=== PATIENT | male | born 1945 | race Caucasian/White ===

== ENCOUNTER 2016-11-16 12:57 | Emergency (ER) | payer MEDICARE, OTHER ==
[~2016-11-16] VITALS: Ht 165.1 cm; Wt 63.6 kg
[~2016-11-16 12:57] MED LIST: ALBUTEROL S2.5 MG/.5 IN; ALPRAZOLAM1 MG PO; AMOXICILLIN875 MG OR; AMOXIL400 MG/52 PO; ANTIVERT PO; AUGMENTIN400 MG/51 PO; BACTRIM DS1 TAB PO; BL ADULT ASA81 MG PO; CIPROFLOXACN500 MG PO; CITALOPRAM20 MG PO; CLARITHROMYC500 M1 PO; CORTISPORIN OTI10 M2 AS; DILANTIN100 MG PO; DILAUDID4 MG PO; ENALAPRIL MALEAT5 MG PO; ENALAPRIL2.5 MG PO; GABAPENTIN600 MG PO; HYDROCORTISO2.51 EX; HYDROMORPHON4 MG PO; INDERAL10 MG PO; IPRATROPIU0.5 MG/3 M IN; K-DUR/KLOR-CON20 MEQ PO; KEFLEX500 MG PO; KRISTALOSE10 GM PO; LASIX 20 MG TAB20 MG PO; LATANOPROST0.005 % OP; LIDOCAINE5 % EX; LORTAB 5/3255 MG PO; MECLIZINE25 MG PO; MEDDOSEPAK PO; METOPROL TAR25 MG PO; METOPROL TAR50 MG PO; METOPROLOL SUCC25 MG PO; MORPHINE SUL60 MG PO; NICODERM C21 MG/241 TD; NITROLINGUAL SPRAY D MT; ONDANSETRON4 MG PO; PHENOBARB30 MG PO; PLAVIX75 MG PO; PREVPAC PO; PRILOSEC20 MG/CAP PO; PROAIR HFA IN; PROSCAR5 MG PO; ULTRAM50 M1 PO; ULTRAM50 MG PO; UNABLE TO RECONCILE; UNK BP MED; VALTREX1 GM PO; VENTOLIN HFA IN; XANAX0.5 MG PO; ZITHROMAX250 MG PO; ZOCOR10 MG PO; ZOCOR20 M1 PO; ZOFRAN ODT4 MG PO; ZOFRAN ODT4 MG SL; [UNRECOGNIZED DRUG - OTHER] TD; [UNRECOGNIZED DRUG - REMARK]
[2016-11-16] MEDS ORDERED: TRAMADOL HYDROC50 MG PO (14:56)
[2016-11-16] MEDS ORDERED: EC-NAPROSYN500 MG PO (14:56)
[2016-11-16 14:59] VITALS: BP 113/77
== END 2016-11-16 15:00 | disposition home or self-care (01) ==
LOC: ED 12:57
DX: S20.211A Contusion of right front wall of thorax, initial encounter (principal); S70.01XA Contusion of right hip, initial encounter; W01.0XXA Fall on same level from slipping, tripping and stumbling without subsequent striking against object, initial encounter; Y92.009 Unspecified place in unspecified non-institutional (private) residence as the place of occurrence of the external cause

== ENCOUNTER 2016-11-21 22:39 | Observation (INO) | payer MEDICARE, OTHER ==
[~2016-11-21] VITALS: Ht 165.1 cm; Wt 66.4 kg
[~2016-11-21 22:39] MED LIST changes: +EC-NAPROSYN500 MG PO; +TRAMADOL HYDROC50 MG PO
[2016-11-22 00:12] LABS: HEMATOCRIT 40.3 % (39.0-50.0); HEMOGLOBIN 14.1 g/dl (14.0-18.0); IMMATURE GRANULOCYTES 0.3 % (0.0-1.0); MEAN CELL VOLUME 93.7 fL CALC (80.0-100.0); MEAN CORPUSCULAR HGB 32.8 pG CALC (26.0-32.0); NEUT# 5.24 thou/uL (1.82-7.42); RED BLOOD COUNT 4.3 mill/uL (4.70-6.10); RED CELL DISTRI WIDTH 14.1 % (11.5-15.5)
[2016-11-22 01:08] LABS: MYOGLOBIN 33 ng/mL (0 - 121)
[2016-11-22 01:10] LABS: ALBUMIN 4.3 g/dL (3.2-5.0); ALKALINE PHOSPHATASE 163 u/l (38-126); ANION GAP 13 (6-22 (CALC)); BILIRUBIN, TOTAL 0.5 mg/dL (0.0-1.4); BUN 6 mg/dL (8-23); BUN/CREATININE RATIO 10 (12-20 (CALC)); CALCIUM 9.2 mg/dL (8.4-10.2); CARBON DIOXIDE 26 mmol/l (22-30); CHLORIDE 92 mmol/l (95-108); CREATININE 0.6 mg/dL (0.7-1.3); GFR > 60 ML/MIN (>=60 (CALC)); GFR FOR AFR.AMER. > 60 ML/MIN (>=60 (CALC)); GLUCOSE 98 mg/dL (82-115); POTASSIUM 4.6 mmol/l (3.5-5.1); SGOT/AST 16 u/l (19-48); SGPT/ALT 22 u/l (11-66); SODIUM 127 mmol/l (137-146); TOTAL PROTEIN 7.8 g/dL (6.3-8.2)
[2016-11-22] MEDS ORDERED: MEDDOSEPAK PO ×2 (01:35→13:26)
[2016-11-22] MEDS ORDERED: CEPHALEXIN500 MG PO (01:35)
[2016-11-22] MEDS ORDERED: ROBITUSSIN AC10 ML PO ×2 (01:35→13:27)
[2016-11-22 03:51] VITALS: BP 136/65
[2016-11-22 06:20] LABS: ANION GAP 17 (6-22 (CALC)); BUN 7 mg/dL (8-23); BUN/CREATININE RATIO 12 (12-20 (CALC)); CALCIUM 9.2 mg/dL (8.4-10.2); CARBON DIOXIDE 24 mmol/l (22-30); CHLORIDE 94 mmol/l (95-108); CREATININE 0.6 mg/dL (0.7-1.3); GFR > 60 ML/MIN (>=60 (CALC)); GFR FOR AFR.AMER. > 60 ML/MIN (>=60 (CALC)); GLUCOSE 175 mg/dL (82-115); MAGNESIUM 1.9 mg/dL (1.6-2.3); POTASSIUM 4.5 mmol/l (3.5-5.1); SODIUM 130 mmol/l (137-146)
[2016-11-22 08:10] VITALS: BP 153/45
[2016-11-22 12:15] VITALS: BP 127/69
[2016-11-22 12:22] VITALS: BP 141/92
[2016-11-22] MEDS ORDERED: Levaquin PO (13:26)
[2016-11-22] MEDS ORDERED: WELLBUTRIN SR150 MG PO (13:27)
[2016-11-22] MEDS ORDERED: BREO ELLIPTA 101 INH INHW/SPAC (13:28)
[2016-11-22] MEDS ORDERED: SPIRIVA RE2.5 MCG/AC INHW/SPAC (13:28)
== END 2016-11-22 14:45 | disposition home or self-care (01) ==
LOC: ENPENDDIS → ED 22:39 → ED-I 11-22 02:16 → ED 11-22 02:42 → MS2 11-22 02:43
PROVIDERS: Emergency Medicine; ADMIT Internal Medicine; ATTEND Internal Medicine
DX: J44.1 Chronic obstructive pulmonary disease with (acute) exacerbation (principal); J44.0 Chronic obstructive pulmonary disease with (acute) lower respiratory infection; J20.9 Acute bronchitis, unspecified; I10 Essential (primary) hypertension; I25.10 Atherosclerotic heart disease of native coronary artery without angina pectoris; E78.5 Hyperlipidemia, unspecified; G20 Parkinson's disease; M19.90 Unspecified osteoarthritis, unspecified site; G40.909 Epilepsy, unspecified, not intractable, without status epilepticus; F17.210 Nicotine dependence, cigarettes, uncomplicated; F41.1 Generalized anxiety disorder; E87.3 Alkalosis; R06.02 Shortness of breath; Z85.819 Personal history of malignant neoplasm of unspecified site of lip, oral cavity, and pharynx; Z95.5 Presence of coronary angioplasty implant and graft; Z79.899 Other long term (current) drug therapy
CPT/HCPCS: J1956

== ENCOUNTER 2017-03-23 20:58 | Emergency (ER) | payer MEDICARE, OTHER ==
[~2017-03-23] VITALS: Ht 165.1 cm; Wt 64.0 kg
[~2017-03-23 20:58] MED LIST changes: +BREO ELLIPTA 101 INH INHW/SPAC; +CEPHALEXIN500 MG PO; +Levaquin PO; +ROBITUSSIN AC10 ML PO; +SPIRIVA RE2.5 MCG/AC INHW/SPAC; +WELLBUTRIN SR150 MG PO
[2017-03-23 22:39] LABS: HEMATOCRIT 39.2 % (39.0-50.0); HEMOGLOBIN 13.9 g/dl (14.0-18.0); IMMATURE GRANULOCYTES 0.3 % (0.0-1.0); MEAN CORPUSCULAR HGB 33.3 pG CALC (26.0-32.0); MEAN CORPUSCULAR HGB CONC 35.5 g/L CALC (32.0-36.0); NEUT# 6.75 thou/uL (1.82-7.42); RED BLOOD COUNT 4.17 mill/uL (4.70-6.10); RED CELL DISTRI WIDTH 12.6 % (11.5-15.5)
[2017-03-23 22:46] LABS: ALBUMIN 4.6 g/dL (3.2-5.0); ALKALINE PHOSPHATASE 153 u/l (38-126); AMYLASE 71 u/l (30-110); ANION GAP 16 (6-22 (CALC)); BILIRUBIN, TOTAL 0.4 mg/dL (0.0-1.4); BUN 2 mg/dL (8-23); BUN/CREATININE RATIO 4 (12-20 (CALC)); CALCIUM 9.4 mg/dL (8.4-10.2); CARBON DIOXIDE 28 mmol/l (22-30); CHLORIDE 96 mmol/l (95-108); CREATININE 0.6 mg/dL (0.7-1.3); GFR > 60 ML/MIN (>=60 (CALC)); GFR FOR AFR.AMER. > 60 ML/MIN (>=60 (CALC)); GLUCOSE 113 mg/dL (82-115); LIPASE 17 u/l (23-300); POTASSIUM 3.1 mmol/l (3.5-5.1); SGOT/AST 20 u/l (19-48); SGPT/ALT 26 u/l (11-66); SODIUM 136 mmol/l (137-146); TOTAL PROTEIN 7.8 g/dL (6.3-8.2)
[2017-03-23 22:58] LABS: MYOGLOBIN 61 ng/mL (0 - 121)
[2017-03-24 00:30] VITALS: BP 132/60
[2017-03-24 00:37] LABS: URINE BILIRUBIN - DIPSTICK NEGATIVE (NEGATIVE); URINE BLOOD DIPSTICK NEGATIVE (NEGATIVE); URINE CLARITY CLEAR; URINE COLOR YELLOW; URINE GLUCOSE - DIPSTICK NEGATIVE (NEGATIVE); URINE KETONE NEGATIVE (NEGATIVE); URINE LEUK ESTERASE NEGATIVE (NEGATIVE); URINE NITRITE - DIPSTICK NEGATIVE (Negative); URINE PROTEIN - DIPSTICK NEGATIVE (NEG-TRACE); URINE SPECIFIC GRAVITY <=1.005; URINE UROBILINOGEN - DIPSTICK 0.2 E.U./dL (0.2)
[2017-03-24] MEDS ORDERED: ZOFRAN ODT4 MG PO (00:42)
[2017-03-24] MEDS ORDERED: CIPROFLOXACN500 MG PO (00:42)
== END 2017-03-24 01:00 | disposition home or self-care (01) ==
LOC: ED 20:58
PROVIDERS: Emergency Medicine
DX: G20 Parkinson's disease (principal); I25.10 Atherosclerotic heart disease of native coronary artery without angina pectoris; I10 Essential (primary) hypertension; E78.5 Hyperlipidemia, unspecified; J44.9 Chronic obstructive pulmonary disease, unspecified; K52.9 Noninfective gastroenteritis and colitis, unspecified; Z85.819 Personal history of malignant neoplasm of unspecified site of lip, oral cavity, and pharynx

== ENCOUNTER 2017-06-03 15:28 | Observation (INO) | payer MEDICARE, OTHER ==
[~2017-06-03] VITALS: Ht 165.1 cm; Wt 70.0 kg
--- NOTE | 2017-06-03 15:42 | NUR ---
PATIENT BROUGHT TO ROOM 10 VIA WHEELCHAIR. MD AWARE OF PATIENT CONDITION.
--- NOTE | 2017-06-03 16:00 | NUR ---
PATIENT REPORTS BEING OUT OF HIS HYDROMORPHONE AND NOT ABLE TO REFILL THE SCRIPT FOR ANOTHER 6 DAYS AND GENERALIZED PAIN IN HIS ENTIRE BODY. FRIEND ALSO REPORTS NO AC IN HOUSE WHICH CAUSES INCREASED SOB. LS BILATERAL WHEEZES IN LL. PATIENT AWARE OF PLAN OF CARE AND WAIT TIME.
[2017-06-03 16:08] LABS: HEMATOCRIT 36.5 % (39.0-50.0); HEMOGLOBIN 13.3 g/dl (14.0-18.0); IMMATURE GRANULOCYTES 0.4 % (0.0-1.0); MEAN CELL VOLUME 91.3 fL CALC (80.0-100.0); MEAN CORPUSCULAR HGB 33.3 pG CALC (26.0-32.0); MEAN CORPUSCULAR HGB CONC 36.4 g/L CALC (32.0-36.0); NEUT# 3.89 thou/uL (1.82-7.42); RED CELL DISTRI WIDTH 12.5 % (11.5-15.5)
[2017-06-03 16:18] LABS: ALBUMIN 4.1 g/dL (3.2-5.0); ALKALINE PHOSPHATASE 115 u/l (38-126); ANION GAP 15 (6-22 (CALC)); BILIRUBIN, TOTAL 0.4 mg/dL (0.0-1.4); BUN 3 mg/dL (8-23); BUN/CREATININE RATIO 5 (12-20 (CALC)); CALCIUM 8.8 mg/dL (8.4-10.2); CARBON DIOXIDE 25 mmol/l (22-30); CHLORIDE 95 mmol/l (95-108); CREATININE 0.6 mg/dL (0.7-1.3); GFR > 60 ML/MIN (>=60 (CALC)); GFR FOR AFR.AMER. > 60 ML/MIN (>=60 (CALC)); GLUCOSE 107 mg/dL (82-115); POTASSIUM 3.2 mmol/l (3.5-5.1); SGOT/AST 17 u/l (19-48); SGPT/ALT 25 u/l (11-66); SODIUM 132 mmol/l (137-146); TOTAL PROTEIN 7.4 g/dL (6.3-8.2)
[2017-06-03 16:30] LABS: MYOGLOBIN 28 ng/mL (0 - 121)
--- NOTE | 2017-06-03 16:32 | NUR ---
PATIENT RESTING COMFORTABLY IN STRETCHER IN NAD. RESP EVEN AND UNLABORED. PATIENT AWARE OF PENDING LABS AND WAIT TIME. CALL MADSEN WITHIN REACH.
--- NOTE | 2017-06-03 17:20 | NUR ---
MD AT BEDSIDE TO DISCUSS RESULTS AND ADMISSION.
--- NOTE | 2017-06-03 17:53 | NUR ---
WARM BLANKET PROVIDED, MEAL TRAY ORDERED. PATIENT AWARE OF PENDING ADMISSION AND WAIT TIME. PATIENT REPORTS HEADACHE. MD NOTIFIED. WILL CONTINUE TO MONITOR.
--- NOTE | 2017-06-03 17:57 | NUR ---
SBAR PRINTED TO FLOOR
--- NOTE | 2017-06-03 18:14 | NUR ---
MEAL TRAY SERVED. WARM BLANKETS APPLIED.
--- NOTE | 2017-06-03 18:36 | NUR ---
ATTEMTED TO CALL REPORT TO MS, [employer] STRAIGHTENER NURSE HAS NOT ARRIVED. WILL CALL WHEN THEY ARRIVE.
--- NOTE | 2017-06-03 18:46 | NUR ---
FAILED ATTMEPT TO CALL REPORT TO MS PUBLICITY WRITER. REPORT GIVEN TO MARILYN TORRE.
--- NOTE | 2017-06-03 19:16 | NUR ---
CALLED FLOOR AGAIN. INFORMED NURSE WILL CALL BACK.
--- NOTE | 2017-06-03 19:24 | NUR ---
Admission Note Report Given to: MARTINE QUACH Transported by: Wheelchair X Stretcher Transported with: X Nurse Transporter X Patent IV X O2 X Metal Finisher
[2017-06-03 19:30] VITALS: BP 172/74
--- NOTE | 2017-06-03 19:30 | NUR ---
PT TRANSFERRED TO FLOOR VIA STRETCHER IN STABLE CONDITION ACCOMPANIED BY YELITZA,MARILYN AND FAMILY MEMBER;PT AMBULATED WITH A WEAK GAIT STATING "I FALL ALOT";VS AND WT OBTAINED BY WAYNE NINA;PT ORIENTED TO ROOM AND CALL LIGHT SYSTEM AND VERBALIZES UNDERSTANDING;ASSESSMENT COMPLETED;PT A&O X3;02 ON @ 2L VIA NC,PT NOTED TO BE O2 DEPENDENT;#20G TO LAC FLUSHED AND PATENT;LEFT SIDED WEAKNESS NOTED FROM HX OF STROKE;PT REPORTS HAVING NO AC AT HOME AND BEING EVICTED WITHIN THE NEXT FEW DAYS;SEIZURE PRECAUTIONS IN PLACE;NON-PRODUCTIVE COUGH NOTED;PT DENIES ANY NEEDS AT THIS TIME;SAFETY PRECAUTIONS PUT INTO PLACE;PT EDUCATED TO CALL FOR ASSISTANCE IF NEEDED;CALL LIGHT IN REACH;WILL CONTINUE TO MONITORD
--- NOTE | 2017-06-03 21:30 | NUR ---
NOTIFED OF PT ELEVATED BP;NEW ORDERS RECEIVED
[2017-06-03 21:49] VITALS: BP 112/54
--- NOTE | 2017-06-03 22:25 | NUR ---
SCHEDULED PHENOBARBITAL GIVEN LATE DUE NOT CARRYING MEDICATION ON THE FLOOR;[facility]Y WAS CALLED IN AND MEDICATION OBTAINED;CASE PACKER,JOSE MALLOY
[2017-06-03 23:32] VITALS: BP 136/80
--- NOTE | 2017-06-04 01:30 | NUR ---
PT RESTING IN HIGH FOWLERS POSITION WITH OXYGEN ON @ 2L AND FAMILY AT BEDSIDE;PT COMPLAINS OF HEAD AND LOWER BACK PAIN RATING 9/10 ON THE PAIN SCALE AND REQUESTS PAIN MEDICATION;PT MEDICATED WITH PRN ULTRAM AT THIS TIME;PT DENIES ANY OTHER NEEDS;FALL PRECAUTIONS IN PLACE;CALL LIGHT IN REACH;WILL CONTINUE TO MONITOR
[2017-06-04 04:25] VITALS: BP 126/77
--- NOTE | 2017-06-04 04:40 | NUR ---
PT VOMITED APPROX. 200ML OF DARK BROWN EMESIS;PT STATES "DONT WORRY,THIS HAPPENS ALL THE TIME.ITS NOTHING NEW";MD TO BE NOTIFED;TREMORS NOTED THROUGHOUT BODY PT STATES "THATS MY PARKINSONS ACTING UP";RESPIRATIONS REMAIN EVEN AND UNLABORED ON 0XYGEN;FAMILY AT BEDSIDE;FALL PRECAUTIONS IN PLACE WITH CALL LIGHT IN REACH;WILL CONTINUE TO MONITOR
--- NOTE | 2017-06-04 04:50 | NUR ---
CALLED REGARDING PT VOMITING;NEW ORDERS RECEIVED
[2017-06-04 06:26] LABS: HEMATOCRIT 38.1 % (39.0-50.0); HEMOGLOBIN 13.4 g/dl (14.0-18.0); IMMATURE GRANULOCYTES 0.3 % (0.0-1.0); MEAN CELL VOLUME 92.9 fL CALC (80.0-100.0); MEAN CORPUSCULAR HGB 32.7 pG CALC (26.0-32.0); MEAN CORPUSCULAR HGB CONC 35.2 g/L CALC (32.0-36.0); NEUT# 5.07 thou/uL (1.82-7.42); RED BLOOD COUNT 4.1 mill/uL (4.70-6.10); RED CELL DISTRI WIDTH 12.6 % (11.5-15.5)
[2017-06-04 06:52] LABS: ALBUMIN 4.2 g/dL (3.2-5.0); ALKALINE PHOSPHATASE 121 u/l (38-126); ANION GAP 16 (6-22 (CALC)); BILIRUBIN, TOTAL 0.4 mg/dL (0.0-1.4); BUN 8 mg/dL (8-23); BUN/CREATININE RATIO 14 (12-20 (CALC)); CALCIUM 9.3 mg/dL (8.4-10.2); CALCULATED LDLCHOLESTEROL 62 mg/dL (62-129 (CALC)); CARBON DIOXIDE 30 mmol/l (22-30); CHLORIDE 95 mmol/l (95-108); CHOLESTEROL HDL RATIO 4.2 (<4.4 (CALC)); CREATININE 0.6 mg/dL (0.7-1.3); GFR > 60 ML/MIN (>=60 (CALC)); GFR FOR AFR.AMER. > 60 ML/MIN (>=60 (CALC)); GLUCOSE 88 mg/dL (82-115); HDL CHOLESTEROL 43 mg/dL (>=40); MAGNESIUM 1.8 mg/dL (1.6-2.3); POTASSIUM 3.8 mmol/l (3.5-5.1); SGOT/AST 17 u/l (19-48); SGPT/ALT 22 u/l (11-66); SODIUM 137 mmol/l (137-146); TOTAL CHOLESTEROL 177 mg/dl (0-199); TOTAL PROTEIN 7.3 g/dL (6.3-8.2); TOTAL TRIGLYCERIDES 365 mg/dl (30-149); VLDL CHOLESTROL 73 mg/dl (0-38 (CALC))
--- NOTE | 2017-06-04 07:00 | NUR ---
SHIFT CHANGE REPORT FROM KIRA QUACH AWAKE ALERT AND ORIENTED SITTING UP IN RECLINER, O2 @ 2L VIA NC IN PLACE, TELE MONITOR IN PLACE, C/O "BAD" HEADACHE AT THIS TIME AND STATES HE HAS THEM FROM TIME TO TIME, WILL CONTINUE TO MONITOR AND ADDRESS NEEDS, CALL MADSEN IN REACH.
[2017-06-04 09:19] VITALS: BP 146/67
--- NOTE | 2017-06-04 09:40 | NUR ---
PT CRYING HYSTERICALLY AT THIS TIME STATING MEDICAL STAFF ACCUSING HIM OF COMING TO THE HOSPITAL DUE TO LACK OF ELECTRICITY AT HIS HOME WHICH IS A "LIE" HE INTERPRETS IT AND THE REASON HE IS HERE IS THAT HE IS SICK AND WAS UNABLE TO BREATHE. I ADVISED PT HIS INTERPRETATION OF WHAT MEENA SAID IS A MISUNDERSTANDING HE WAS IN BATHROOM AT THE TIME SHE CAME TO HIS ROOM AND COMMUNICATION WAS NOT EFFECTIVE AT THAT TIME. I ADVISED PT TO SIT IN CHAIR UNTIL MEDICAL STAFF RETURNS AND COMMUNICATION WILL BE BETTER IN THAT SETTING. PT IS OF THE OPINION WE WANT TO GET HIM OUT OF HERE, I ASSURED BOTH MEDICAL STAFF AND NSG STAFF ARE CARING PEOPLE AND WE MAKE EVERY EFFORT NOT TO BE JUDGMENTAL ABOUT OUR PATIENTS BUT TO TREAT THEM WITH RESPECT AND ADDRESS ALL THEIR NEEDS/CONCERNS MUCH POSSIBLE WITHIN OUR SCOPE. TLC GIVEN AND PT CALMED DOWN SOME, WILL CONTINUE TO MONITOR.
[2017-06-04 11:35] VITALS: BP 131/74
[2017-06-04] MEDS ORDERED: PREDNISONE10 MG PO (13:03)
--- NOTE | 2017-06-04 13:37 | NUR ---
VOMITTING AT THIS TIME, MEDICATED, STATES THIS CONDITION IS NOT NEW. VERY NERVOUS AND EMOTIONAL, STATES THIS IS THE FIRST TIME HE HAS EVER ASKED FOR ASSISTANCE AND PATRICK IS NOW IN PROCESS OF PROVIDING LIVING SPACE FOR HIM AND ROOMMATE.
[2017-06-04 15:54] VITALS: BP 115/76
--- NOTE | 2017-06-04 17:18 | NUR ---
VOMITTING PROFULELY AT THIS TIME, MEDICATED.
[2017-06-04 17:46] LABS: ANION GAP 18 (6-22 (CALC)); BUN 8 mg/dL (8-23); BUN/CREATININE RATIO 14 (12-20 (CALC)); CALCIUM 9.2 mg/dL (8.4-10.2); CARBON DIOXIDE 24 mmol/l (22-30); CHLORIDE 97 mmol/l (95-108); CREATININE 0.6 mg/dL (0.7-1.3); GFR > 60 ML/MIN (>=60 (CALC)); GFR FOR AFR.AMER. > 60 ML/MIN (>=60 (CALC)); GLUCOSE 97 mg/dL (82-115); POTASSIUM 3.9 mmol/l (3.5-5.1); SODIUM 135 mmol/l (137-146)
[2017-06-04 19:20] VITALS: BP 133/80
--- NOTE | 2017-06-04 23:00 | NUR ---
DISCHARGE INSTRUCTIONS REVIEWED WITH PATIENT AND CAREGIVER. PRESCRIPTIONS FOR PREDNISONE AND ZOFRAN HANDED TO CAREGIVER. IV CATH DISCONTINUED AND 2X2 GAUZE PLACED TO SITE WITH PAPER TAPE. TELE REMOVED AND CLEANED PLACED AT NURSES STATION. PATIENT DONE TO LOBBY VIA WHEELCHAIR WITH KNIFE CHANGER.
== END 2017-06-04 23:30 | disposition home or self-care (01) ==
LOC: ED 15:28 → ED-I 17:48 → ED 18:11 → MS2 18:12
PROVIDERS: Emergency Medicine; Nurse Practitioner Family; ADMIT Internal Medicine; ATTEND Internal Medicine
DX: F43.9 Reaction to severe stress, unspecified (principal); F41.1 Generalized anxiety disorder; J44.1 Chronic obstructive pulmonary disease with (acute) exacerbation; I25.10 Atherosclerotic heart disease of native coronary artery without angina pectoris; I10 Essential (primary) hypertension; E78.5 Hyperlipidemia, unspecified; G20 Parkinson's disease; F17.210 Nicotine dependence, cigarettes, uncomplicated; G89.4 Chronic pain syndrome; E87.6 Hypokalemia; E87.1 Hypo-osmolality and hyponatremia; E78.1 Pure hyperglyceridemia; Z99.81 Dependence on supplemental oxygen; Z95.5 Presence of coronary angioplasty implant and graft; Z85.819 Personal history of malignant neoplasm of unspecified site of lip, oral cavity, and pharynx; Z59.1 Inadequate housing; R07.89 Other chest pain
CPT/HCPCS: J1650

== ENCOUNTER 2018-03-31 19:22 | Emergency (ER) | payer MEDICARE, OTHER ==
[~2018-03-31] VITALS: Ht 167.6 cm; Wt 69.0 kg
[~2018-03-31 19:22] MED LIST changes: +PREDNISONE10 MG PO
[2018-03-31 19:57] LABS: HEMATOCRIT 37.2 % (39.0-50.0); HEMOGLOBIN 13.2 g/dl (14.0-18.0); IMMATURE GRANULOCYTES 0.3 % (0.0-5.0); MEAN CELL VOLUME 92.3 fL CALC (80.0-100.0); MEAN CORPUSCULAR HGB 32.8 pG CALC (26.0-32.0); MEAN CORPUSCULAR HGB CONC 35.5 g/L CALC (32.0-36.0); NEUT# 5.74 thou/uL (1.82-7.42); RED BLOOD COUNT 4.03 mill/uL (4.70-6.10); RED CELL DISTRI WIDTH 13.5 % (11.5-15.5)
[2018-03-31 20:13] LABS: ALBUMIN 4.5 g/dL (3.2-5.0); ALKALINE PHOSPHATASE 122 u/l (38-126); AMYLASE 87 u/l (30-110); BILIRUBIN, TOTAL 0.4 mg/dL (0.0-1.4); BUN 9 mg/dL (8-23); BUN/CREATININE RATIO 13 (12-20 (CALC)); CARBON DIOXIDE 23 mmol/l (22-30); CHLORIDE 91 mmol/l (95-108); CREATININE 0.7 mg/dL (0.7-1.3); GFR > 60 ML/MIN (>=60 (CALC)); GFR FOR AFR.AMER. > 60 ML/MIN (>=60 (CALC)); LIPASE 16 u/l (23-300); SGOT/AST 23 u/l (19-48); SGPT/ALT 15 u/l (11-66); TOTAL PROTEIN 8.2 g/dL (6.3-8.2)
[2018-03-31 20:15] LABS: ANION GAP 18 (6-22 (CALC)); POTASSIUM 4.8 mmol/l (3.5-5.1); SODIUM 127 mmol/l (137-146)
[2018-03-31 20:23] LABS: MYOGLOBIN 40 ng/mL (0 - 121)
[2018-03-31 21:40] LABS: URINE BILIRUBIN - DIPSTICK NEGATIVE (NEGATIVE); URINE BLOOD DIPSTICK NEGATIVE (NEGATIVE); URINE COLOR YELLOW; URINE GLUCOSE - DIPSTICK NEGATIVE (NEGATIVE); URINE KETONE NEGATIVE (NEGATIVE); URINE LEUK ESTERASE NEGATIVE (NEGATIVE); URINE NITRITE - DIPSTICK NEGATIVE (Negative); URINE PROTEIN - DIPSTICK NEGATIVE (NEG-TRACE); URINE UROBILINOGEN - DIPSTICK 0.2 E.U./dL (0.2)
[2018-03-31 21:44] LABS: URINE CLARITY CLEAR
[2018-03-31 22:17] VITALS: BP 136/59
== END 2018-03-31 22:25 | disposition home or self-care (01) ==
LOC: ED 19:22
PROVIDERS: Emergency Medicine
DX: R07.81 Pleurodynia (principal); E87.1 Hypo-osmolality and hyponatremia; I25.10 Atherosclerotic heart disease of native coronary artery without angina pectoris; I48.91 Unspecified atrial fibrillation; I25.2 Old myocardial infarction; G20 Parkinson's disease; J43.9 Emphysema, unspecified; G89.29 Other chronic pain; F17.210 Nicotine dependence, cigarettes, uncomplicated; Z85.819 Personal history of malignant neoplasm of unspecified site of lip, oral cavity, and pharynx

== ENCOUNTER 2018-06-25 20:05 | Emergency (ER) | payer MEDICARE, OTHER ==
[~2018-06-25] VITALS: Ht 167.6 cm; Wt 72.7 kg
[2018-06-25 20:54] LABS: HEMATOCRIT 33.3 % (39.0-50.0); HEMOGLOBIN 11.6 g/dl (14.0-18.0); IMMATURE GRANULOCYTES 0.4 % (0.0-5.0); MEAN CELL VOLUME 95.7 fL CALC (80.0-100.0); MEAN CORPUSCULAR HGB 33.3 pG CALC (26.0-32.0); MEAN CORPUSCULAR HGB CONC 34.8 g/L CALC (32.0-36.0); NEUT# 6.63 thou/uL (1.82-7.42); RED BLOOD COUNT 3.48 mill/uL (4.70-6.10); RED CELL DISTRI WIDTH 13.4 % (11.5-15.5)
[2018-06-25 21:11] LABS: ALKALINE PHOSPHATASE 125 u/l (38-126); AMYLASE 57 u/l (30-110); ANION GAP 16 (6-22 (CALC)); BILIRUBIN, TOTAL 0.3 mg/dL (0.0-1.4); BUN 8 mg/dL (8-23); BUN/CREATININE RATIO 14 (12-20 (CALC)); CARBON DIOXIDE 23 mmol/l (22-30); CHLORIDE 93 mmol/l (95-108); CREATININE 0.6 mg/dL (0.7-1.3); GFR > 60 ML/MIN (>=60 (CALC)); GFR FOR AFR.AMER. > 60 ML/MIN (>=60 (CALC)); LIPASE 25 u/l (23-300); POTASSIUM 3.9 mmol/l (3.5-5.1); SGOT/AST 20 u/l (19-48); SODIUM 128 mmol/l (137-146)
[2018-06-25 21:22] LABS: MYOGLOBIN 64 ng/mL (0 - 121)
[2018-06-25 22:28] LABS: URINE BILIRUBIN - DIPSTICK NEGATIVE (NEGATIVE); URINE BLOOD DIPSTICK NEGATIVE (NEGATIVE); URINE COLOR YELLOW; URINE GLUCOSE - DIPSTICK NEGATIVE (NEGATIVE); URINE KETONE NEGATIVE (NEGATIVE); URINE LEUK ESTERASE NEGATIVE (NEGATIVE); URINE NITRITE - DIPSTICK NEGATIVE (Negative); URINE PH 5.5 (4.5-8.0); URINE PROTEIN - DIPSTICK NEGATIVE (NEG-TRACE); URINE UROBILINOGEN - DIPSTICK 0.2 E.U./dL (0.2)
[2018-06-25 22:29] LABS: URINE CLARITY CLEAR
[2018-06-26 01:00] VITALS: BP 105/62
== END 2018-06-26 01:30 | disposition home or self-care (01) ==
LOC: ED 20:05
PROVIDERS: Emergency Medicine
DX: R11.2 Nausea with vomiting, unspecified (principal); I48.91 Unspecified atrial fibrillation; F17.200 Nicotine dependence, unspecified, uncomplicated; I25.10 Atherosclerotic heart disease of native coronary artery without angina pectoris; I25.2 Old myocardial infarction; Z85.819 Personal history of malignant neoplasm of unspecified site of lip, oral cavity, and pharynx

== ENCOUNTER → 2018-10-20 | Outpatient (REF) | payer MEDICARE, OTHER ==
[2018-10-20 12:12] LABS: HEMATOCRIT 34.6 % (39.0-50.0); HEMOGLOBIN 11.5 g/dl (14.0-18.0); IMMATURE GRANULOCYTES 0.4 % (0.0-5.0); MEAN CORPUSCULAR HGB 32.6 pG CALC (26.0-32.0); MEAN CORPUSCULAR HGB CONC 33.2 g/L CALC (32.0-36.0); NEUT# 5.18 thou/uL (1.82-7.42); RED BLOOD COUNT 3.53 mill/uL (4.70-6.10); RED CELL DISTRI WIDTH 14.1 % (11.5-15.5)
[2018-10-20 12:53] LABS: ALBUMIN 3.7 g/dL (3.2-5.0); ALKALINE PHOSPHATASE 142 u/l (38-126); ANION GAP 13 (6-22 (CALC)); BILIRUBIN, TOTAL 0.2 mg/dL (0.0-1.4); BUN 5 mg/dL (8-23); BUN/CREATININE RATIO 7 (12-20 (CALC)); CALCULATED LDLCHOLESTEROL 83 mg/dL (62-129 (CALC)); CARBON DIOXIDE 23 mmol/l (22-30); CHLORIDE 100 mmol/l (95-108); CHOLESTEROL HDL RATIO 3.6 (<4.4 (CALC)); CREATININE 0.7 mg/dL (0.7-1.3); GFR > 60 ML/MIN (>=60 (CALC)); GFR FOR AFR.AMER. > 60 ML/MIN (>=60 (CALC)); HDL CHOLESTEROL 48 mg/dL (>=40); POTASSIUM 3.9 mmol/l (3.5-5.1); SGOT/AST 14 u/l (19-48); SODIUM 133 mmol/l (137-146); TOTAL CHOLESTEROL 170 mg/dl (0-199); TOTAL PROTEIN 6.7 g/dL (6.3-8.2); TOTAL TRIGLYCERIDES 200 mg/dl (30-149); VLDL CHOLESTROL 40 mg/dl (0-38 (CALC))
[2018-10-20 13:17] LABS: TSH, 3RD GENERATION 1.13 uIU/mL (0.47 - 4.68)
== END | disposition home or self-care (01) ==
LOC: LAB 11:18
PROVIDERS: ATTEND Internal Medicine
DX: I25.10 Atherosclerotic heart disease of native coronary artery without angina pectoris (principal); F41.9 Anxiety disorder, unspecified; F33.1 Major depressive disorder, recurrent, moderate; Z12.5 Encounter for screening for malignant neoplasm of prostate

== ENCOUNTER 2018-12-08 01:13 | Emergency (ER) | payer MEDICARE, OTHER ==
[~2018-12-08] VITALS: Ht 165.1 cm; Wt 59.1 kg
[2018-12-08 02:08] LABS: HEMATOCRIT 34.9 % (39.0-50.0); HEMOGLOBIN 11.6 g/dl (14.0-18.0); IMMATURE GRANULOCYTES 0.6 % (0.0-5.0); MEAN CELL VOLUME 97.2 fL CALC (80.0-100.0); MEAN CORPUSCULAR HGB 32.3 pG CALC (26.0-32.0); MEAN CORPUSCULAR HGB CONC 33.2 g/L CALC (32.0-36.0); NEUT# 8.66 thou/uL (1.82-7.42); RED BLOOD COUNT 3.59 mill/uL (4.70-6.10)
[2018-12-08 02:16] LABS: ALBUMIN 3.9 g/dL (3.2-5.0); ANION GAP 16 (6-22 (CALC)); BILIRUBIN, TOTAL 0.2 mg/dL (0.0-1.4); BUN 9 mg/dL (8-23); BUN/CREATININE RATIO 12 (12-20 (CALC)); CARBON DIOXIDE 26 mmol/l (22-30); CHLORIDE 98 mmol/l (95-108); CREATININE 0.8 mg/dL (0.7-1.3); GFR > 60 ML/MIN (>=60 (CALC)); GFR FOR AFR.AMER. > 60 ML/MIN (>=60 (CALC)); POTASSIUM 3.4 mmol/l (3.5-5.1); SGOT/AST 16 u/l (19-48); SODIUM 137 mmol/l (137-146)
[2018-12-08 02:28] LABS: ALKALINE PHOSPHATASE 219 u/l (38-126); MYOGLOBIN 42 ng/mL (0 - 121)
[2018-12-08 03:00] VITALS: BP 145/64
== END 2018-12-08 03:00 | disposition left against medical advice (07) ==
LOC: ED 01:13
PROVIDERS: Emergency Medicine
DX: R07.9 Chest pain, unspecified (principal); Z91.19 Patient's noncompliance with other medical treatment and regimen; F17.210 Nicotine dependence, cigarettes, uncomplicated; I25.2 Old myocardial infarction; I10 Essential (primary) hypertension; I25.10 Atherosclerotic heart disease of native coronary artery without angina pectoris; Z95.5 Presence of coronary angioplasty implant and graft; R06.02 Shortness of breath

== ENCOUNTER 2019-02-15 21:02 | Observation (INO) | payer MEDICARE, OTHER ==
[~2019-02-15] VITALS: Ht 165.1 cm; Wt 66.0 kg
[~2019-02-15 21:02] MED LIST changes: +DOXYCYCL HYC100 MG PO; +ENALAPRIL MALE2.5 MG PO; +FAMOTIDINE20 M1 PO; +FLUOXETINE HCL20 MG PO; +FUROSEMIDE20 MG PO; +LOPRESSOR25 M1 PO; +MORPHINE SULFAT30 M1 PO; +MYSOLINE50 M1 PO; +NITRO-DUR0.4 MG/HR TD; +TRAZODONE50 MG PO; +TRIDERM0.1 %
[2019-02-15 22:05] LABS: HEMATOCRIT 37.3 % (39.0-50.0); HEMOGLOBIN 12.6 g/dl (14.0-18.0); IMMATURE GRANULOCYTES 0.4 % (0.0-5.0); MEAN CELL VOLUME 92.3 fL CALC (80.0-100.0); MEAN CORPUSCULAR HGB 31.2 pG CALC (26.0-32.0); MEAN CORPUSCULAR HGB CONC 33.8 g/L CALC (32.0-36.0); NEUT# 6.94 thou/uL (1.82-7.42); RED BLOOD COUNT 4.04 mill/uL (4.70-6.10); RED CELL DISTRI WIDTH 14.2 % (11.5-15.5)
[2019-02-15 22:45] LABS: URINE BILIRUBIN - DIPSTICK NEGATIVE (NEGATIVE); URINE BLOOD DIPSTICK NEGATIVE (NEGATIVE); URINE COLOR YELLOW; URINE GLUCOSE - DIPSTICK NEGATIVE (NEGATIVE); URINE KETONE NEGATIVE (NEGATIVE); URINE LEUK ESTERASE NEGATIVE (NEGATIVE); URINE NITRITE - DIPSTICK NEGATIVE (Negative); URINE PH 6.5 (4.5-8.0); URINE PROTEIN - DIPSTICK NEGATIVE (NEG-TRACE); URINE UROBILINOGEN - DIPSTICK 0.2 E.U./dL (0.2)
[2019-02-15 22:49] LABS: ALBUMIN 4.3 g/dL (3.2-5.0); ALKALINE PHOSPHATASE 222 u/l (38-126); ANION GAP 15 (6-22 (CALC)); BILIRUBIN, TOTAL 0.3 mg/dL (0.0-1.4); BUN 4 mg/dL (8-23); BUN/CREATININE RATIO 8 (12-20 (CALC)); CARBON DIOXIDE 29 mmol/l (22-30); CHLORIDE 96 mmol/l (95-108); CREATININE 0.6 mg/dL (0.7-1.3); GFR > 60 ML/MIN (>=60 (CALC)); GFR FOR AFR.AMER. > 60 ML/MIN (>=60 (CALC)); SGOT/AST 20 u/l (19-48); SODIUM 137 mmol/l (137-146); TOTAL PROTEIN 7.8 g/dL (6.3-8.2)
[2019-02-15 22:56] LABS: POTASSIUM 3.4 mmol/l (3.5-5.1)
[2019-02-15 23:01] LABS: MYOGLOBIN 46 ng/mL (0 - 121)
[2019-02-16 00:45] VITALS: BP 191/85
[2019-02-16 01:45] VITALS: BP 186/90
[2019-02-16 04:15] VITALS: BP 188/89
[2019-02-16 05:18] VITALS: BP 157/81
[2019-02-16 08:16] VITALS: BP 163/84
[2019-02-16 10:55] VITALS: BP 118/77
== END 2019-02-16 13:00 | disposition left against medical advice (07) ==
LOC: ED 21:02 → ED-I 23:00 → ED 23:21 → MS2 23:22
PROVIDERS: Emergency Medicine; ADMIT Internal Medicine Nephrology; ATTEND Internal Medicine Nephrology
DX: R07.89 Other chest pain (principal); I10 Essential (primary) hypertension; I25.10 Atherosclerotic heart disease of native coronary artery without angina pectoris; J43.9 Emphysema, unspecified; I48.91 Unspecified atrial fibrillation; G20 Parkinson's disease; E78.5 Hyperlipidemia, unspecified; G62.9 Polyneuropathy, unspecified; S73.101A Unspecified sprain of right hip, initial encounter; F41.9 Anxiety disorder, unspecified; F32.9 Major depressive disorder, single episode, unspecified; G89.4 Chronic pain syndrome; G40.909 Epilepsy, unspecified, not intractable, without status epilepticus; H40.9 Unspecified glaucoma; I25.2 Old myocardial infarction; F17.210 Nicotine dependence, cigarettes, uncomplicated; W19.XXXA Unspecified fall, initial encounter; Z85.819 Personal history of malignant neoplasm of unspecified site of lip, oral cavity, and pharynx; Z95.5 Presence of coronary angioplasty implant and graft

== ENCOUNTER 2019-03-17 11:06 | Emergency (ER) | payer MEDICARE, OTHER ==
[~2019-03-17] VITALS: Ht 165.1 cm; Wt 65.0 kg
[~2019-03-17 11:06] MED LIST changes: +ASPIRIN 8181 MG PO; -BL ADULT ASA81 MG PO
[2019-03-17] MEDS ORDERED: DILANTIN100 MG PO (12:02)
[2019-03-17] MEDS ORDERED: PROSCAR5 MG PO (12:03)
[2019-03-17] MEDS ORDERED: ENALAPRIL2.5 MG PO (12:06)
[2019-03-17] MEDS ORDERED: PHENOBARB30 MG PO (12:07)
[2019-03-17] MEDS ORDERED: VOLTAREN1%GEL TOP (12:11)
[2019-03-17] MEDS ORDERED: NITROGLYCE0.4 MG/SPR SL (12:12)
[2019-03-17] MEDS ORDERED: NITROGLYCER0.4 MG/H1 TOP (12:13)
[2019-03-17] MEDS ORDERED: PREDNISONE20 MG PO (12:20)
[2019-03-17 12:30] VITALS: BP 128/63
== END 2019-03-17 12:30 | disposition home or self-care (01) ==
LOC: ED 11:06
DX: G89.29 Other chronic pain (principal); M79.604 Pain in right leg; I10 Essential (primary) hypertension; I25.10 Atherosclerotic heart disease of native coronary artery without angina pectoris; J43.9 Emphysema, unspecified; I48.91 Unspecified atrial fibrillation; G20 Parkinson's disease; F17.200 Nicotine dependence, unspecified, uncomplicated; I25.2 Old myocardial infarction; Z79.899 Other long term (current) drug therapy

== ENCOUNTER 2019-03-19 10:59 | Emergency (ER) | payer MEDICARE, OTHER ==
[~2019-03-19] VITALS: Ht 165.1 cm; Wt 63.6 kg
[~2019-03-19 10:59] MED LIST changes: +NITROGLYCE0.4 MG/SPR SL; +NITROGLYCER0.4 MG/H1 TOP; +PREDNISONE20 MG PO; +VOLTAREN1%GEL TOP
[2019-03-19] MEDS ORDERED: NAPROSYN500 MG PO (12:23)
[2019-03-19 12:35] VITALS: BP 153/75
== END 2019-03-19 12:50 | disposition home or self-care (01) ==
LOC: ED 10:59
DX: G89.29 Other chronic pain (principal); R52 Pain, unspecified; T50.996A Underdosing of other drugs, medicaments and biological substances, initial encounter; I10 Essential (primary) hypertension; I25.10 Atherosclerotic heart disease of native coronary artery without angina pectoris; I25.2 Old myocardial infarction; J43.9 Emphysema, unspecified; I48.91 Unspecified atrial fibrillation; G20 Parkinson's disease; G62.9 Polyneuropathy, unspecified; F17.210 Nicotine dependence, cigarettes, uncomplicated; Z91.128 Patient's intentional underdosing of medication regimen for other reason

== ENCOUNTER 2019-04-14 22:46 | Emergency (ER) | payer MEDICARE, OTHER ==
[~2019-04-14] VITALS: Ht 165.1 cm; Wt 77.2 kg
[~2019-04-14 22:46] MED LIST changes: +NAPROSYN500 MG PO
[2019-04-15 01:06] VITALS: BP 140/79
== END 2019-04-15 01:05 | disposition home or self-care (01) ==
LOC: ED 22:46
DX: M16.11 Unilateral primary osteoarthritis, right hip (principal); I10 Essential (primary) hypertension; I25.10 Atherosclerotic heart disease of native coronary artery without angina pectoris; I25.2 Old myocardial infarction; J43.9 Emphysema, unspecified; I48.91 Unspecified atrial fibrillation; G20 Parkinson's disease; G62.9 Polyneuropathy, unspecified; F17.210 Nicotine dependence, cigarettes, uncomplicated

== ENCOUNTER 2019-07-24 21:56 | Observation (INO) | payer MEDICARE, OTHER ==
[~2019-07-24] VITALS: Ht 170.2 cm; Wt 69.9 kg
--- NOTE | 2019-07-24 21:58 | NUR ---
TO TX ROOM VIA W/C
--- NOTE | 2019-07-24 22:22 | NUR ---
TALKATIVE. NO VOMITING SINCE ARRIVAL. ROSA MARIA IS GOING TO [place] FOR SURGERIES FOR CANCER.... POSSIBLE TRACH AND FEEDING TUBE. DENIES NEED OF PAIN MEDICATION- "HAS AT HOME" "DO NOT WANT TO STAY HERE... JUST DEHYDRATED"
--- NOTE | 2019-07-24 22:45 | NUR ---
PT SAID THAT HE ONLY TAKE 2 MEDICATIONS. SON-IN-LAW REPORTS HE TAKE MORE BUT DID NOT TAKE ANY TODAY DUE TO NAUSEA. MED REC UPDATED MUCH POSSIBLE
[2019-07-24 22:56] LABS: HEMATOCRIT 35.5 % (39.0-50.0); HEMOGLOBIN 12.5 g/dl (14.0-18.0); IMMATURE GRANULOCYTES 0.3 % (0.0-5.0); MEAN CELL VOLUME 87.4 fL CALC (80.0-100.0); MEAN CORPUSCULAR HGB 30.8 pG CALC (26.0-32.0); MEAN CORPUSCULAR HGB CONC 35.2 g/L CALC (32.0-36.0); NEUT# 6.34 thou/uL (1.82-7.42); RED BLOOD COUNT 4.06 mill/uL (4.70-6.10); RED CELL DISTRI WIDTH 14.2 % (11.5-15.5)
--- NOTE | 2019-07-24 23:03 | NUR ---
UNABLE TO PROVIDE URINE SPECIMEN
[2019-07-24 23:15] LABS: ALBUMIN 4.8 g/dL (3.2-5.0); ALKALINE PHOSPHATASE 192 u/l (38-126); AMYLASE 107 u/l (30-110); BILIRUBIN, TOTAL 0.3 mg/dL (0.0-1.4); BUN 16 mg/dL (8-23); BUN/CREATININE RATIO 16 (12-20 (CALC)); CHLORIDE 87 mmol/l (95-108); GFR > 60 ML/MIN (>=60 (CALC)); GFR FOR AFR.AMER. > 60 ML/MIN (>=60 (CALC)); LIPASE 25 u/l (23-300); SGOT/AST 27 u/l (19-48); TOTAL PROTEIN 8.4 g/dL (6.3-8.2)
[2019-07-24 23:17] LABS: ANION GAP 21 (6-22 (CALC)); CARBON DIOXIDE 20 mmol/l (22-30); POTASSIUM 4.3 mmol/l (3.5-5.1); SODIUM 124 mmol/l (137-146)
--- NOTE | 2019-07-25 | NUR ---
BEDRESTING. STILL UNABLE TO PROVIDE A URINE SPECIMEN
--- NOTE | 2019-07-25 00:30 | NUR ---
DRANK ABOUT HALF OF THE SODA-TOLERATED WELL
--- NOTE | 2019-07-25 01:00 | NUR ---
TALKATIVE. NO VOMITING SINCE ARRIVAL
--- NOTE | 2019-07-25 01:20 | NUR ---
REPORT CALLED TO MARILYN BENITEZ
--- NOTE | 2019-07-25 01:30 | NUR ---
PT KEPT CLOTHES ON UNDER GOWN HE WAS COLD EVEN THOUGH ROOM IS VERY WARM
--- NOTE | 2019-07-25 01:32 | NUR ---
TO MS VIA W/C
[2019-07-25 01:45] VITALS: BP 124/73
--- NOTE | 2019-07-25 03:00 | NUR ---
PATIENT ADMITTED FROM ER VIA WHEELCHAIR WITH ER STAFF IN ATTENDANCE. PATIENT ASSISTED FROM WHEELCHAIR TO BED. PATIENT IS AWAKE ALERT AND EXTREMELY ANXIOUS. PATIENT WITH TREMORS NOTED TO BOTH UPPER EXTREMITIES. PATIENT IS TALKATIVE BUT IS NOT ABLE TO TELL THE MONTH OR YEAR./ DOES KNOW THAT HE IS AT [facility]. CONFUSED TO TIME. KNOWS HIS BIRTHDATE. PATIENT STATES THAT HE DOESN'T READ OR WRITE. LIVES WITH CAHRLENE CAREGIVER. PATIENT STATES THAT HE DOES HAVE HISTORY OF SEIZURES. SIDERAILS PADDED FROR SEIZURE PRECAUITONS DILANTIN 1GM IN 500CC OF NS INFUSING ORDERED VIA LEFT HAND SITE. GOOD BLOOD RETURN AT THIS TIME. PATIENT IS NPO. PATIENT ASSISTED WITH TAKING CLOTHES OFF. PATIENT WITH CONFLICTING STORIES REGUARDING HIS PMH. PATIENT WITH DRY HEAVES-MEDICATED WITH ZOFRAN 4MG IVP-STATES THAT HE HASN'T BEEN ABLE TO EAT FOR SEVERAL DAYS MAYBE A WEEK. EVERYTHING THAT HE TRYS TO EAT HE VOMITS BACK UP. PATIENT WITH SEVERE BRUISING NOTED TO BOTH ARMS-STATES THAT IT WAS FROM "SEIZURE THAT HE HAD LAST WEEK". ATTEMPTED TO ORIENT PATIENT TO ROOM AND SURROUNDINGS. INSTRUCTED ON USSE OF NURSE CALL LIGHT SYSTEM, TV REMOTE AND PHONE. PATIENT STATES THAT HE IS BRIDGETT IN LEFT EYE. CALL LIGHT IN REACH. BED ALARM IN PLACE FOR PATIENT SAFETY. CALL LIGHT IN REACH. WILL CONT TO MONITOR.
[2019-07-25 03:36] VITALS: BP 158/70
--- NOTE | 2019-07-25 03:37 | NUR ---
PATIENT REMAINS RESTLESS. MEDICATED WITH PEPCID ORDERED FOR GI DISTRESS. IVF NS PATENT AND INFUSING VIA LEFT HAND IV SITE. BED ALARM PLACE FOR PATIENT SAFETY. CALL LIGHT IN REACH. WILL CONT TO MONITOR.
[2019-07-25 08:00] VITALS: BP 116/64
--- NOTE | 2019-07-25 08:00 | NUR ---
PT SEEN AWAKE, ALERT, BUT NOT ORIENTED TO PLACE AND TIME. PT TALKS IF HE HAS AN UNDERSTANDING OF HIS AILMENTS, BUT QUICKLY SHOWS THAT TO BE NOT TRUE. PT STATES THAT HE IS WAITING FOR HIS RIDE TO GET HERE TO GO HOME. HE SAYS HE DOES NOT WANT ANYONE CUTTING A HOLE IN HIS THROAT. HE WANTS TO EAT, BUT IS NPO. SODA PROVIDED TEST FOR NAUSEA, WHICH HE DRANK WITHOUT COUGHING OR VOMITING. PT AWAITS HOSPITALIST TO ESTABLISH PLAN OF CARE. OR GO HOME.
[2019-07-25 08:09] LABS: URINE BILIRUBIN - DIPSTICK NEGATIVE (NEGATIVE); URINE BLOOD DIPSTICK NEGATIVE (NEGATIVE); URINE COLOR YELLOW; URINE GLUCOSE - DIPSTICK 100 mg/dL (NEGATIVE); URINE KETONE NEGATIVE (NEGATIVE); URINE LEUK ESTERASE NEGATIVE (NEGATIVE); URINE NITRITE - DIPSTICK NEGATIVE (Negative); URINE PROTEIN - DIPSTICK NEGATIVE (NEG-TRACE); URINE SPECIFIC GRAVITY <=1.005; URINE UROBILINOGEN - DIPSTICK 0.2 E.U./dL (0.2)
[2019-07-25 08:52] LABS: ANION GAP 16 (6-22 (CALC)); BUN 13 mg/dL (8-23); BUN/CREATININE RATIO 17 (12-20 (CALC)); CARBON DIOXIDE 23 mmol/l (22-30); CHLORIDE 94 mmol/l (95-108); CREATININE 0.7 mg/dL (0.7-1.3); GFR > 60 ML/MIN (>=60 (CALC)); GFR FOR AFR.AMER. > 60 ML/MIN (>=60 (CALC)); POTASSIUM 4.4 mmol/l (3.5-5.1); SODIUM 129 mmol/l (137-146)
[2019-07-25 10:43] VITALS: BP 125/72
--- NOTE | 2019-07-25 11:30 | NUR ---
PT WITH VISITOR AT BEDSIDE, CAREGIVER. PT ASKING ABOUT WHETHER HE IS GOING HOME TODAY.
--- NOTE | 2019-07-25 12:22 | NUR ---
PT PROVIDED FULL LIQUID DIET, WILL EVALUATE IF HE CAN BE ADVANCED IN DIET FOR DINNER. PT SEEN BY DR RIVERA, AWARE THAT HE WILL NOT BE DISCHARGED TODAY.
[2019-07-25 15:00] VITALS: BP 119/59
--- NOTE | 2019-07-25 15:37 | NUR ---
PT HAS BEEN TO CT HEAD AND BACK. PT PROVIDED MORPHINE FOR PAIN RELIEF AND XANAX PER REQUEST. PT SEEN [facility], CLUMSY, PER [facility]. SON HERE AND NOW HOME. NO DISTRESS, NO COMPLAINTS. PT DID NOT WANT TO ADVANCE HIS DIET BEYOND FULL LIQUID AT THIS TIME, STATES THAT THEY MADE HIM FEEL BLOATED.
[2019-07-26 04:00] VITALS: BP 138/66
--- NOTE | 2019-07-26 04:00 | NUR ---
PATIENT IS UP IN CHAIR AT THIS TIME. IV TUBING AND ELECTRICAL CORDS TANGLED TOGETHER. DRESSING TO LEFT ARM WILL BE REPLACED PATIENT HAS THAT OFF WELL. IVF NS PATENT AND INFUSING VIA LEFT HAND AT 125CC/HR. VOIDING QS IN YELLOW URINE. CONFUSED AND RESTLESS-SEEING CAT UNDER HIS BED. CONT WITH SEVERE TREMORS. VERY ANXIOUS AND RESTLESS. MEDICATED WITH XANAX 1MG PO FOR ANXIETY. CALL LIGHT IN REACH. SAFETY PRECAUTIONS REINFORCED. CALL LIGHT IN REACH. WILL CONT TO MONITOR.
[2019-07-26 04:39] LABS: HEMATOCRIT 30.4 % (39.0-50.0); IMMATURE GRANULOCYTES 0.2 % (0.0-5.0); MEAN CELL VOLUME 91.8 fL CALC (80.0-100.0); MEAN CORPUSCULAR HGB 30.8 pG CALC (26.0-32.0); MEAN CORPUSCULAR HGB CONC 33.6 g/L CALC (32.0-36.0); NEUT# 6.28 thou/uL (1.82-7.42); RED BLOOD COUNT 3.31 mill/uL (4.70-6.10); RED CELL DISTRI WIDTH 14.5 % (11.5-15.5)
[2019-07-26 04:41] LABS: HEMOGLOBIN 10.2 g/dl (14.0-18.0)
[2019-07-26 05:23] LABS: ALBUMIN 3.9 g/dL (3.2-5.0); ALKALINE PHOSPHATASE 147 u/l (38-126); ANION GAP 16 (6-22 (CALC)); BILIRUBIN, TOTAL 0.2 mg/dL (0.0-1.4); BUN 8 mg/dL (8-23); BUN/CREATININE RATIO 12 (12-20 (CALC)); CARBON DIOXIDE 21 mmol/l (22-30); CHLORIDE 98 mmol/l (95-108); CREATININE 0.7 mg/dL (0.7-1.3); GFR > 60 ML/MIN (>=60 (CALC)); GFR FOR AFR.AMER. > 60 ML/MIN (>=60 (CALC)); POTASSIUM 4.4 mmol/l (3.5-5.1); SGOT/AST 24 u/l (19-48); SODIUM 131 mmol/l (137-146); TOTAL PROTEIN 6.9 g/dL (6.3-8.2)
[2019-07-26 08:00] VITALS: BP 135/62
--- NOTE | 2019-07-26 08:00 | NUR ---
PT SEEN AWAKE, ALERT, ORIENTED TO SELF AND PLACE ONLY. PT HAS CLEAR LUNGS, RA. PT WITHOUT VOMITING OR NAUSEA THIS MORNING. PT HOPES FOR DISCHARGE TODAY. SON AT BEDSIDE.
[2019-07-26 09:10] VITALS: BP 138/66
[2019-07-26] MEDS ORDERED: ABILIFY MYCITE5 MG PO (09:37)
[2019-07-26] MEDS ORDERED: ZESTRIL10 M1 PO (09:38)
[2019-07-26] MEDS ORDERED: CYMBALTA30 MG PO (09:38)
[2019-07-26] MEDS ORDERED: MEDDOSEPAK PO (11:35)
--- NOTE | 2019-07-26 12:00 | NUR ---
PT HAS BEEN DISCHARGED TO HOME. PT LEAVES [facility] IN STABLE CONDITION. IV REMOVED. PT CONTINUES FREE OF NAUSEA OF VOMITING. PT SEEN BY DR RIVERA, CLEARED FOR DISPOSITION.
== END 2019-07-26 11:58 | disposition home or self-care (01) ==
LOC: ED 21:56 → ED-I 07-25 00:06 → ED 07-25 00:27 → MS2 07-25 00:28
PROVIDERS: Emergency Medicine; Internal Medicine; Nurse Practitioner Family; ADMIT Internal Medicine; ATTEND Internal Medicine
DX: E87.1 Hypo-osmolality and hyponatremia (principal); E86.0 Dehydration; G89.4 Chronic pain syndrome; E87.6 Hypokalemia; R10.84 Generalized abdominal pain; R11.2 Nausea with vomiting, unspecified; I10 Essential (primary) hypertension; I25.10 Atherosclerotic heart disease of native coronary artery without angina pectoris; J43.9 Emphysema, unspecified; I48.91 Unspecified atrial fibrillation; G20 Parkinson's disease; E78.5 Hyperlipidemia, unspecified; C14.0 Malignant neoplasm of pharynx, unspecified; G62.1 Alcoholic polyneuropathy; N40.0 Benign prostatic hyperplasia without lower urinary tract symptoms; G40.909 Epilepsy, unspecified, not intractable, without status epilepticus; F17.210 Nicotine dependence, cigarettes, uncomplicated; I25.2 Old myocardial infarction; K21.9 Gastro-esophageal reflux disease without esophagitis; Z79.899 Other long term (current) drug therapy; Z79.891 Long term (current) use of opiate analgesic; Z95.5 Presence of coronary angioplasty implant and graft
CPT/HCPCS: G0378; S0164

== ENCOUNTER 2019-07-27 16:28 | Emergency (ER) | payer MEDICARE, OTHER ==
[~2019-07-27] VITALS: Ht 170.2 cm; Wt 70.0 kg
[~2019-07-27 16:28] MED LIST changes: +ABILIFY MYCITE5 MG PO; +CYMBALTA30 MG PO; +ZESTRIL10 M1 PO
[2019-07-27 18:04] VITALS: BP 158/78
== END 2019-07-27 18:10 | disposition home or self-care (01) ==
LOC: ED 16:28
DX: S10.91XA Abrasion of unspecified part of neck, initial encounter (principal)

== ENCOUNTER 2019-10-03 15:37 | Emergency (ER) | payer MEDICARE, OTHER ==
[2019-10-03 15:42] VITALS: BP 159/79
== END 2019-10-03 17:57 | disposition left against medical advice (07) ==
LOC: ED 15:37 → LWOBS 17:56
DX: Z53.21 Procedure and treatment not carried out due to patient leaving prior to being seen by health care provider (principal)

== ENCOUNTER 2019-10-12 | Inpatient (IN) | payer MEDICARE, OTHER ==
--- NOTE | 2019-10-11 18:43 | NUR ---
PATIENT TO ROOM VIA EMS AND PHYSICIAN NOTIFIED OF PATIENT STATUS
--- NOTE | 2019-10-11 19:15 | NUR ---
URINE COLLECTED.PT USED URINAL. ADVISED OF CONTINUED WAIT TIME FOR RESULTS.
[2019-10-11 19:17] LABS: HEMATOCRIT 32.7 % (39.0-50.0); HEMOGLOBIN 11.1 g/dl (14.0-18.0); IMMATURE GRANULOCYTES 0.4 % (0.0-5.0); MEAN CELL VOLUME 90.8 fL CALC (80.0-100.0); MEAN CORPUSCULAR HGB 30.8 pG CALC (26.0-32.0); MEAN CORPUSCULAR HGB CONC 33.9 g/L CALC (32.0-36.0); NEUT# 4.83 thou/uL (1.82-7.42); RED BLOOD COUNT 3.6 mill/uL (4.70-6.10); RED CELL DISTRI WIDTH 14.6 % (11.5-15.5)
[2019-10-11 19:24] LABS: URINE BILIRUBIN - DIPSTICK NEGATIVE (NEGATIVE); URINE BLOOD DIPSTICK NEGATIVE (NEGATIVE); URINE COLOR YELLOW; URINE GLUCOSE - DIPSTICK NEGATIVE (NEGATIVE); URINE KETONE NEGATIVE (NEGATIVE); URINE LEUK ESTERASE NEGATIVE (NEGATIVE); URINE NITRITE - DIPSTICK NEGATIVE (Negative); URINE PROTEIN - DIPSTICK NEGATIVE (NEG-TRACE); URINE UROBILINOGEN - DIPSTICK 0.2 E.U./dL (0.2)
[2019-10-11 19:34] LABS: ALKALINE PHOSPHATASE 140 u/l (38-126); ANION GAP 16 (6-22 (CALC)); BUN 9 mg/dL (8-23); BUN/CREATININE RATIO 15 (12-20 (CALC)); CARBON DIOXIDE 22 mmol/l (22-30); CHLORIDE 91 mmol/l (95-108); CREATININE 0.6 mg/dL (0.7-1.3); GFR > 60 ML/MIN (>=60 (CALC)); GFR FOR AFR.AMER. > 60 ML/MIN (>=60 (CALC)); POTASSIUM 4.7 mmol/l (3.5-5.1); SGOT/AST 23 u/l (19-48); SODIUM 124 mmol/l (137-146); TOTAL PROTEIN 7.6 g/dL (6.3-8.2)
[2019-10-11 19:40] LABS: BILIRUBIN, TOTAL 0.3 mg/dL (0.0-1.4)
[2019-10-11 19:46] LABS: MYOGLOBIN 51 ng/mL (0 - 121)
--- NOTE | 2019-10-11 20:20 | NUR ---
PT UP TO BSC. VOIDED APPROX 1000 ML CLEAR YELLOW URINE. RETURNED TO BED. TOLERATED WELL.
[2019-10-11 20:27] LABS: PHENYTOIN (DILANTIN) 9 ug/mL (10 - 20)
--- NOTE | 2019-10-11 21:30 | NUR ---
PT AWARE OF PENDING ADMIT. RESP EVEN AND UNLABORED. IV SITE HEALTHY. SON AT BEDSIDE.
--- NOTE | 2019-10-11 22:24 | NUR ---
PT TO MEDSURG VIA STRETCHER ON TELEMETRY IN NO APPARENT DISTRESS. SATS 95% RA
--- NOTE | 2019-10-11 22:24 | NUR ---
REPORT CALLED TO JAMILA DARDEN ON MEDSUR. PT IN STABLE CONDITION.
[2019-10-11 22:34] VITALS: BP 125/73
--- NOTE | 2019-10-11 23:40 | NUR ---
PT RECEIVED FROM ED @ 2333, ARRIVED ON STRETCHER ACCOMPANIED BY ED NURSE. PT TO BED WITHOUT DIFFICULTY AND SAT ON SIDE OF BED DURING ADMISSION INTERVIEW. ADMISSION COMPLETED, PHYSICAL ASSESMENT COMPLETE. PT OFFERED TV DINNER TRAY OR TURKEY SANDWICH, PT DECLINES. PT ORIENTED TO UNIT, ROOM, AND PLAN OF CARE. DENIES QUESTIONS OR FURTHER NEEDS AT THIS TIME. CALL MADSEN WITHIN REACH, AGREES TO CALL PRN.
[2019-10-12 00:44] LABS: BUN 9 mg/dL (8-23); BUN/CREATININE RATIO 16 (12-20 (CALC)); CARBON DIOXIDE 22 mmol/l (22-30); CHLORIDE 97 mmol/l (95-108); CREATININE 0.6 mg/dL (0.7-1.3); GFR > 60 ML/MIN (>=60 (CALC)); GFR FOR AFR.AMER. > 60 ML/MIN (>=60 (CALC)); SODIUM 130 mmol/l (137-146)
[2019-10-12 00:50] LABS: ANION GAP 16 (6-22 (CALC)); POTASSIUM 5.3 mmol/l (3.5-5.1)
--- NOTE | 2019-10-12 01:14 | NUR ---
BEDRAILS PADDED FOR SEIZURE PRECAUTIONS
[2019-10-12 03:13] VITALS: BP 126/62
--- NOTE | 2019-10-12 04:00 | NUR ---
REMOVED BANDAGE FROM PATIENTS LEFT OUTER TALLEY, SKIN IS MOSTLY INTACT WITH SMALL PINPOINT SCABS. PT SAID HE INJURED HIMSELF ON CAR DOOR. SKIN LEFT OPEN TO AIR. RESTING COMFORTABLY, CALL MADSEN WITHIN REACH. AGREES TO CALL PRN.
[2019-10-12 05:25] LABS: ANION GAP 15 (6-22 (CALC)); BUN 10 mg/dL (8-23); BUN/CREATININE RATIO 17 (12-20 (CALC)); CARBON DIOXIDE 23 mmol/l (22-30); CHLORIDE 97 mmol/l (95-108); CREATININE 0.6 mg/dL (0.7-1.3); GFR > 60 ML/MIN (>=60 (CALC)); GFR FOR AFR.AMER. > 60 ML/MIN (>=60 (CALC)); SODIUM 129 mmol/l (137-146)
[2019-10-12 05:33] LABS: POTASSIUM 5.6 mmol/l (3.5-5.1)
[2019-10-12] MEDS ORDERED: DILAUDID4 MG PO (09:52)
[2019-10-12 11:25] VITALS: BP 107/53
[2019-10-12 12:58] LABS: ANION GAP 17 (6-22 (CALC)); BUN 10 mg/dL (8-23); BUN/CREATININE RATIO 18 (12-20 (CALC)); CARBON DIOXIDE 21 mmol/l (22-30); CHLORIDE 95 mmol/l (95-108); CREATININE 0.5 mg/dL (0.7-1.3); GFR > 60 ML/MIN (>=60 (CALC)); GFR FOR AFR.AMER. > 60 ML/MIN (>=60 (CALC)); POTASSIUM 4.5 mmol/l (3.5-5.1); SODIUM 129 mmol/l (137-146)
[2019-10-12 15:38] VITALS: BP 145/71
--- NOTE | 2019-10-12 16:00 | NUR ---
PT RESTING IN BED REFUSING TO FOLLOW FLUID RESTRICTIONS AND WANTING COKE AND FLUIDS. PT REMINDED HE IS ON A FLUID RESTRICTION. HE STATED HE WANTS SOME ANYWAY. WATER GIVEN. PT HAS ALREADY HAD 3 SODAS TODAY AND REMINDED THAT THE MORE POP HE DRINKS MAY AFFECT HIS LABS AND KEEP HIM HERE LONGER. PT STATES I CAN DRINK WHATEVER I WANT AT HOME.
[2019-10-12 18:15] LABS: ANION GAP 17 (6-22 (CALC)); BUN 9 mg/dL (8-23); BUN/CREATININE RATIO 18 (12-20 (CALC)); CARBON DIOXIDE 20 mmol/l (22-30); CHLORIDE 96 mmol/l (95-108); CREATININE 0.5 mg/dL (0.7-1.3); GFR > 60 ML/MIN (>=60 (CALC)); GFR FOR AFR.AMER. > 60 ML/MIN (>=60 (CALC)); POTASSIUM 4.3 mmol/l (3.5-5.1); SODIUM 129 mmol/l (137-146)
[2019-10-12 18:42] VITALS: BP 162/76
--- NOTE | 2019-10-12 19:00 | NUR ---
PT RESTING QUIETLY WITH EYES CLOSED. SON HAS LEFT FOR THE DAY.
--- NOTE | 2019-10-12 20:20 | NUR ---
URINAL EMPTIED OF 300CC OF CLEAR YELLOW URINE. PT ASSESSED AT THIS TIME. PT ASKING FOR PAIN MEDICATION, PT HAS ALREADY BEEN MEDICATED. HE IS SITTING ON THE SIDE OF THE BED. PT ASKING FOR CUP OF ICE/PROVIDED AND DISCUSSED FLUID RESTRICTION W/PT. CALL LIGHT AT SIDE AND PT ENCOURAGED TO CALL NEEDS ARISE.
--- NOTE | 2019-10-12 20:57 | NUR ---
PT MEDICATED ORDERS PROVIDE. PT IS SITTING ON SIDE OF THE BED. MEDICATIONS DISCUSSED W/PT, PT EDUCATED ON MEDICATIONS AND POC DISCUSSED.
--- NOTE | 2019-10-12 23:46 | NUR ---
PT MEDICATED FOR ANXIETY, ASKING FOR HIS PAIN MEDICATION, HAS ALREADY BEEN MEDICATED, WILL FOLLOW-UP WHEN MEDICATIONS ARE AVAILABLE. PT AMBULATED TO THE RESTROOM AND BACK TO BED. RONNA IS IN W/PT AT THIS TIME OBTAINING V/S.
[2019-10-12 23:47] VITALS: BP 112/53
[2019-10-13 01:07] LABS: ANION GAP 9 (6-22 (CALC)); BUN 11 mg/dL (8-23); BUN/CREATININE RATIO 20 (12-20 (CALC)); CHLORIDE 96 mmol/l (95-108); CREATININE 0.6 mg/dL (0.7-1.3); GFR > 60 ML/MIN (>=60 (CALC)); GFR FOR AFR.AMER. > 60 ML/MIN (>=60 (CALC)); POTASSIUM 4.1 mmol/l (3.5-5.1); SODIUM 127 mmol/l (137-146)
[2019-10-13 01:12] LABS: CARBON DIOXIDE 26 mmol/l (22-30)
--- NOTE | 2019-10-13 02:48 | NUR ---
PT MEDICATED FOR PAIN 7/10 ON PAIN SCALE GENERALIZED. PT UP TO RESTROOM AND BACK TO BED.
[2019-10-13 03:29] VITALS: BP 118/57
[2019-10-13 05:48] LABS: MEAN CELL VOLUME 93.9 fL CALC (80.0-100.0); MEAN CORPUSCULAR HGB 30.3 pG CALC (26.0-32.0); MEAN CORPUSCULAR HGB CONC 32.3 g/L CALC (32.0-36.0); RED BLOOD COUNT 3.3 mill/uL (4.70-6.10); RED CELL DISTRI WIDTH 14.7 % (11.5-15.5)
[2019-10-13 06:11] LABS: ANION GAP 10 (6-22 (CALC)); BUN 10 mg/dL (8-23); BUN/CREATININE RATIO 19 (12-20 (CALC)); CARBON DIOXIDE 25 mmol/l (22-30); CHLORIDE 100 mmol/l (95-108); CREATININE 0.5 mg/dL (0.7-1.3); GFR > 60 ML/MIN (>=60 (CALC)); GFR FOR AFR.AMER. > 60 ML/MIN (>=60 (CALC)); MAGNESIUM 2.2 mg/dL (1.6-2.3); POTASSIUM 4.5 mmol/l (3.5-5.1); SODIUM 130 mmol/l (137-146)
--- NOTE | 2019-10-13 07:30 | NUR ---
PT RESTING IN BED WITH EYES CLOSED. NO DISTRESS NOTED.
[2019-10-13 08:37] VITALS: BP 152/74
--- NOTE | 2019-10-13 09:05 | NUR ---
PT WITH OVERALL UNPLEASANT DEMEANOR. COORPERATIVE. XANAX GIVEN PER PRN ORDER PER PT REQUEST.
[2019-10-13 10:50] VITALS: BP 124/68
--- NOTE | 2019-10-13 11:08 | NUR ---
PT HAS INSISTED ON LEAVING AGAINST MEDICAL ADVISE. SON, CHARLENE AGOSTO, AT BEDSIDE REQUEST FOR IV AND HEART MONITOR BE REMOVED SO HE CAN TAKE THE PATIENT HOME. MR. AGOSTO PREVIOUSLY EXPRESSED THAT HE WOULLD WAIT FOR THE PHYSICIAN TO SEE PATIENT BEFORE TAKING PATIENT HOME. AT THIS TIME PATIENT AND MR. AGOSTO EXPRESS THAT THEY PREFER TO LEAVE AGAINST MEDICAL ADVISE. DR. RIVERA NOTIFIED. PT CONTINUES TO REFUSE FURTHER DIAGNOSTIC TESTING. PT STATES, "I HAVE MY DOCTORS AT [facility]. I WILL CALL THEM WHEN I GET HOME AND THEY WILL TELL ME IF I NEED TO GO FOR ANY TESTING." PT ENCOURAGED TO REMAIN IN HOSPITAL PER THE PHYSICIANS ADVISE FOR FURTHER TREATMENT AND TESTING. RISK OF WORSENING CONDITION AND EXPLAINED TO PATIENT AND SON. PT AND SON VERBALIZE UNDERSTAND. PT STATES, "IF I , I RATHER AT HOME. I DON'T WANT TO IN A HOSPITAL." SON STATES, "IF HE WANTS TO GO, I'M TAKING HIM HOME."
--- NOTE | 2019-10-13 11:25 | NUR ---
PT HAS LEFT IN WHEELCHAIR WITH SON. IV CATH REMOVED IN TACT AND TELE BOX REMOVED.
== END 2019-10-13 11:22 | disposition left against medical advice (07) | DRG 641 ==
PROVIDERS: Emergency Medicine; Nurse Practitioner Family; ADMIT Internal Medicine
DX: E87.1 Hypo-osmolality and hyponatremia (principal); E87.5 Hyperkalemia; C14.0 Malignant neoplasm of pharynx, unspecified; I10 Essential (primary) hypertension; I25.10 Atherosclerotic heart disease of native coronary artery without angina pectoris; J43.9 Emphysema, unspecified; G20 Parkinson's disease; F02.80 Dementia in other diseases classified elsewhere, unspecified severity, without behavioral disturbance, psychotic disturbance, mood disturbance, and anxiety; I48.91 Unspecified atrial fibrillation; R13.10 Dysphagia, unspecified; G40.909 Epilepsy, unspecified, not intractable, without status epilepticus; G89.4 Chronic pain syndrome; F41.8 Other specified anxiety disorders; F17.210 Nicotine dependence, cigarettes, uncomplicated; I25.2 Old myocardial infarction; Z95.5 Presence of coronary angioplasty implant and graft; Z91.11 Patient's noncompliance with dietary regimen
CPT/HCPCS: G0378

== ENCOUNTER 2019-10-24 | Emergency (ER) | payer MEDICARE, OTHER ==
[2019-10-24 20:28] LABS: HEMATOCRIT 33.2 % (39.0-50.0); HEMOGLOBIN 11.4 g/dl (14.0-18.0); IMMATURE GRANULOCYTES 0.4 % (0.0-5.0); MEAN CORPUSCULAR HGB 30.9 pG CALC (26.0-32.0); MEAN CORPUSCULAR HGB CONC 34.3 g/L CALC (32.0-36.0); NEUT# 6.23 thou/uL (1.82-7.42); RED BLOOD COUNT 3.69 mill/uL (4.70-6.10); RED CELL DISTRI WIDTH 14.6 % (11.5-15.5)
[2019-10-24 20:45] LABS: LIPASE 15 u/l (23-300)
[2019-10-24 20:48] LABS: ALBUMIN 4.2 g/dL (3.2-5.0); ALKALINE PHOSPHATASE 151 u/l (38-126); ANION GAP 15 (6-22 (CALC)); BILIRUBIN, TOTAL 0.3 mg/dL (0.0-1.4); BUN 3 mg/dL (8-23); BUN/CREATININE RATIO 5 (12-20 (CALC)); CARBON DIOXIDE 22 mmol/l (22-30); CHLORIDE 96 mmol/l (95-108); CREATININE 0.5 mg/dL (0.7-1.3); GFR > 60 ML/MIN (>=60 (CALC)); GFR FOR AFR.AMER. > 60 ML/MIN (>=60 (CALC)); POTASSIUM 4.1 mmol/l (3.5-5.1); SGOT/AST 19 u/l (19-48); SODIUM 129 mmol/l (137-146); TOTAL PROTEIN 7.3 g/dL (6.3-8.2)
[2019-10-24] MEDS ORDERED: ONDANSETRON4 MG PO (22:19)
== END 2019-10-24 23:17 | disposition home or self-care (01) ==
DX: E87.1 Hypo-osmolality and hyponatremia (principal); R11.2 Nausea with vomiting, unspecified; R10.84 Generalized abdominal pain; I10 Essential (primary) hypertension; I48.91 Unspecified atrial fibrillation; I25.10 Atherosclerotic heart disease of native coronary artery without angina pectoris; G40.909 Epilepsy, unspecified, not intractable, without status epilepticus; G20 Parkinson's disease; G62.9 Polyneuropathy, unspecified; F17.210 Nicotine dependence, cigarettes, uncomplicated; Z86.73 Personal history of transient ischemic attack (TIA), and cerebral infarction without residual deficits; Z95.5 Presence of coronary angioplasty implant and graft

== ENCOUNTER 2019-11-06 19:31 | Emergency (ER) | payer MEDICARE, OTHER ==
[2019-11-06 19:43] VITALS: BP 130/65
== END 2019-11-06 21:03 | disposition left against medical advice (07) ==
LOC: ED 19:31 → LWOBS 21:03
DX: Z91.19 Patient's noncompliance with other medical treatment and regimen (principal)

== ENCOUNTER 2019-11-16 16:05 | Emergency (ER) | payer MEDICARE, OTHER ==
[2019-11-16] MEDS ORDERED: PHENERGAN25 MG/TAB PO (16:44)
[2019-11-16] MEDS ORDERED: MECLIZINE25 MG PO (16:44)
[2019-11-16 17:05] VITALS: BP 139/80
== END 2019-11-16 17:05 | disposition home or self-care (01) ==
LOC: ED 16:05
DX: R11.2 Nausea with vomiting, unspecified (principal); R42 Dizziness and giddiness; I10 Essential (primary) hypertension; J43.9 Emphysema, unspecified; I48.91 Unspecified atrial fibrillation; I25.10 Atherosclerotic heart disease of native coronary artery without angina pectoris; I25.2 Old myocardial infarction; G20 Parkinson's disease; G62.9 Polyneuropathy, unspecified; F17.200 Nicotine dependence, unspecified, uncomplicated; Z95.5 Presence of coronary angioplasty implant and graft

== ENCOUNTER 2019-11-28 | Emergency (ER) | payer MEDICARE, OTHER ==
[~2019-11-28] MED LIST changes: +PHENERGAN25 MG/TAB PO
[2019-11-29] MEDS ORDERED: XANAX0.5 MG PO (01:15)
== END 2019-11-28 02:38 | disposition home or self-care (01) ==
DX: F41.9 Anxiety disorder, unspecified (principal); I10 Essential (primary) hypertension; G40.909 Epilepsy, unspecified, not intractable, without status epilepticus; G20 Parkinson's disease; I25.10 Atherosclerotic heart disease of native coronary artery without angina pectoris; J43.9 Emphysema, unspecified; I48.91 Unspecified atrial fibrillation; G62.9 Polyneuropathy, unspecified; F17.210 Nicotine dependence, cigarettes, uncomplicated; I25.2 Old myocardial infarction

== ENCOUNTER 2019-11-29 00:54 | Emergency (ER) | payer MEDICARE, OTHER ==
[2019-11-29] MEDS ORDERED: XANAX0.5 MG PO (01:15)
[2019-11-29 01:19] VITALS: BP 137/89
== END 2019-11-29 01:25 | disposition home or self-care (01) ==
LOC: ED 00:54
DX: F41.9 Anxiety disorder, unspecified (principal); I10 Essential (primary) hypertension; G40.909 Epilepsy, unspecified, not intractable, without status epilepticus; G20 Parkinson's disease; I25.10 Atherosclerotic heart disease of native coronary artery without angina pectoris; J43.9 Emphysema, unspecified; I25.2 Old myocardial infarction; I48.91 Unspecified atrial fibrillation; G62.9 Polyneuropathy, unspecified; F17.210 Nicotine dependence, cigarettes, uncomplicated

== ENCOUNTER 2019-11-29 15:27 | Emergency (ER) | payer MEDICARE, OTHER | END 2019-11-29 15:45 | disposition left against medical advice (07) | LOC: ED 15:27 → LWOBS 15:44 | DX: Z53.21 Procedure and treatment not carried out due to patient leaving prior to being seen by health care provider (principal) ==

== ENCOUNTER 2020-03-16 17:42 | Emergency (ER) | payer MEDICARE, OTHER ==
[~2020-03-16] VITALS: Ht 170.2 cm; Wt 68.0 kg
[2020-03-16 18:20] LABS: HEMOGLOBIN 11.1 g/dl (14.0-18.0); IMMATURE GRANULOCYTES 0.4 % (0.0-5.0); MEAN CELL VOLUME 89.9 fL CALC (80.0-100.0); MEAN CORPUSCULAR HGB 29.5 pG CALC (26.0-32.0); MEAN CORPUSCULAR HGB CONC 32.8 g/dL CAL (32.0-36.0); NEUT# 4.99 thou/uL (1.82-7.42); RED BLOOD COUNT 3.76 mill/uL (4.70-6.10); RED CELL DISTRI WIDTH 15.4 % (11.5-15.5)
[2020-03-16 18:31] LABS: HEMATOCRIT 33.8 % (39.0-50.0)
[2020-03-16 18:45] LABS: BUN 18 mg/dL (8-23); BUN/CREATININE RATIO 21 (12-20 (CALC)); CARBON DIOXIDE 22 mmol/l (22-30); CHLORIDE 97 mmol/l (95-108); CREATININE 0.9 mg/dL (0.7-1.3); GFR > 60 ML/MIN (>=60 (CALC)); GFR FOR AFR.AMER. > 60 ML/MIN (>=60 (CALC)); SODIUM 128 mmol/l (137-146)
[2020-03-16 18:46] LABS: ANION GAP 13 (6-22 (CALC)); POTASSIUM 4.3 mmol/l (3.5-5.1)
[2020-03-16] MEDS ORDERED: LEVAQUIN750 MG PO ×2 (19:25)
[2020-03-16 20:33] VITALS: BP 146/64
[2020-03-17] MEDS ORDERED: LEVOFLOXACIN750 MG PO (11:46)
[2020-03-17] MEDS ORDERED: ENALAPRIL MALEAT5 MG PO (11:47)
[2020-03-17] MEDS ORDERED: FINASTERIDE5 MG PO (11:47)
[2020-03-17] MEDS ORDERED: PHENOBARBITAL30 MG PO (11:47)
[2020-03-17] MEDS ORDERED: NITROGLYCE0.4 MG/SPR (11:48)
[2020-03-17] MEDS ORDERED: DILANTIN100 MG PO (11:49)
[2020-03-17] MEDS ORDERED: CLOPIDOGREL75 MG PO (11:49)
[2020-03-17] MEDS ORDERED: VENTOLIN H108 MCG/AC (11:50)
[2020-03-17] MEDS ORDERED: FUROSEMIDE20 MG PO (11:50)
[2020-03-17] MEDS ORDERED: METOPROL TAR25 M1 PO (11:51)
[2020-03-17] MEDS ORDERED: HYDROMORPHON4 MG PO (12:24)
[2020-03-17] MEDS ORDERED: CLARITIN10 M1 PO (12:27)
[2020-03-17] MEDS ORDERED: VENTOLIN HFA IN (12:28)
[2020-03-17] MEDS ORDERED: MEDDOSEPAK PO ×2 (21:07)
[2020-03-17] MEDS ORDERED: ZITHROMAX250 MG PO (21:09)
== END 2020-03-16 20:46 | disposition home or self-care (01) ==
LOC: ED 17:42
PROVIDERS: Student in an Organized Health Care Education/Training Program
DX: J18.9 Pneumonia, unspecified organism (principal); S50.02XA Contusion of left elbow, initial encounter; I10 Essential (primary) hypertension; G40.909 Epilepsy, unspecified, not intractable, without status epilepticus; I25.10 Atherosclerotic heart disease of native coronary artery without angina pectoris; J43.9 Emphysema, unspecified; I48.91 Unspecified atrial fibrillation; G62.9 Polyneuropathy, unspecified; G20 Parkinson's disease; F17.210 Nicotine dependence, cigarettes, uncomplicated; I25.2 Old myocardial infarction; W19.XXXA Unspecified fall, initial encounter; Z95.5 Presence of coronary angioplasty implant and graft; Z86.73 Personal history of transient ischemic attack (TIA), and cerebral infarction without residual deficits; Z20.828 Contact with and (suspected) exposure to other viral communicable diseases

== ENCOUNTER 2020-03-17 11:13 | Inpatient (IN) | payer MEDICARE, OTHER ==
[~2020-03-17] VITALS: Ht 170.2 cm; Wt 67.7 kg
[~2020-03-17 11:13] MED LIST changes: +LEVAQUIN750 MG PO
--- NOTE | 2020-03-17 11:20 | NUR ---
Pt to room # 9 via W/C for bedside triage
--- NOTE | 2020-03-17 11:45 | NUR ---
PT ASSESSED. PT AO X 3. SKIN PINK WARM AND DRY. PT REPORTS UNABLE TO SWALLOW ANTIBIOTIC AT HOME AND FEELS WORSE TODAY. BREATH SOUNDS WITH EXPIRATORY WHEEZING BILAT.
[2020-03-17] MEDS ORDERED: LEVOFLOXACIN750 MG PO (11:46)
[2020-03-17] MEDS ORDERED: ENALAPRIL MALEAT5 MG PO (11:47)
[2020-03-17] MEDS ORDERED: PHENOBARBITAL30 MG PO (11:47)
[2020-03-17] MEDS ORDERED: FINASTERIDE5 MG PO (11:47)
[2020-03-17] MEDS ORDERED: NITROGLYCE0.4 MG/SPR (11:48)
[2020-03-17] MEDS ORDERED: CLOPIDOGREL75 MG PO (11:49)
[2020-03-17] MEDS ORDERED: DILANTIN100 MG PO (11:49)
[2020-03-17 11:50] LABS: HEMATOCRIT 33.8 % (39.0-50.0); HEMOGLOBIN 11.4 g/dl (14.0-18.0); IMMATURE GRANULOCYTES 0.4 % (0.0-5.0); MEAN CELL VOLUME 88.3 fL CALC (80.0-100.0); MEAN CORPUSCULAR HGB 29.8 pG CALC (26.0-32.0); MEAN CORPUSCULAR HGB CONC 33.7 g/dL CAL (32.0-36.0); NEUT# 6.99 thou/uL (1.82-7.42); RED BLOOD COUNT 3.83 mill/uL (4.70-6.10); RED CELL DISTRI WIDTH 15.5 % (11.5-15.5)
[2020-03-17] MEDS ORDERED: VENTOLIN H108 MCG/AC (11:50)
[2020-03-17] MEDS ORDERED: FUROSEMIDE20 MG PO (11:50)
[2020-03-17] MEDS ORDERED: METOPROL TAR25 M1 PO (11:51)
[2020-03-17 12:08] LABS: ALBUMIN 4.5 g/dL (3.2-5.0); ANION GAP 16 (6-22 (CALC)); BILIRUBIN, TOTAL 0.3 mg/dL (0.0-1.4); BUN 15 mg/dL (8-23); BUN/CREATININE RATIO 19 (12-20 (CALC)); CARBON DIOXIDE 24 mmol/l (22-30); CHLORIDE 95 mmol/l (95-108); CREATININE 0.8 mg/dL (0.7-1.3); GFR > 60 ML/MIN (>=60 (CALC)); GFR FOR AFR.AMER. > 60 ML/MIN (>=60 (CALC)); POTASSIUM 4.6 mmol/l (3.5-5.1); SGOT/AST 25 u/l (19-48); SODIUM 130 mmol/l (137-146); TOTAL PROTEIN 7.5 g/dL (6.3-8.2)
[2020-03-17 12:13] LABS: ALKALINE PHOSPHATASE 238 u/l (38-126)
[2020-03-17] MEDS ORDERED: HYDROMORPHON4 MG PO (12:24)
[2020-03-17] MEDS ORDERED: CLARITIN10 M1 PO (12:27)
[2020-03-17] MEDS ORDERED: VENTOLIN HFA IN (12:28)
--- NOTE | 2020-03-17 12:45 | NUR ---
PT RESTING ON STRETCHER AWAITING RESULTS
--- NOTE | 2020-03-17 13:45 | NUR ---
PT ASSISTED TO BEDSIDE COMMODE. UA SENT TO LAB
--- NOTE | 2020-03-17 14:14 | NUR ---
PT VOIDED 600 ML CLEAR YELLOW URINE
--- NOTE | 2020-03-17 14:35 | NUR ---
PT GIVEN ICE CHIPS. RESTING COMFORTABLY ON STRETCHER.
--- NOTE | 2020-03-17 15:33 | NUR ---
PT RESTING ON STRECHER AWAITING ADMISSION BED
--- NOTE | 2020-03-17 15:44 | NUR ---
700 ML CLEAR YELLOW URINE VOIDED
--- NOTE | 2020-03-17 16:25 | NUR ---
PT RESTING ON STRETCHER SIPPING COKE. REPORTS FEELING BETTER
--- NOTE | 2020-03-17 17:23 | NUR ---
REPORT GIVEN TO ELA SANDERS ICU
[2020-03-17 17:45] VITALS: BP 140/75
--- NOTE | 2020-03-17 17:45 | NUR ---
PT TRANSPORTED VIA STRETCHER, MONITOR IN PLACE TO ICU
--- NOTE | 2020-03-17 17:45 | NUR ---
PT ADMITTED TO ICU BED 2 MS/OF, PT TRANSFERRED FROM STRETCHER TO BED WELL WITH SBA, SLOW STEADY GAIT.PT WITH VISIBLE TREMORS. PT ASSISTED TO BSC, VOIDED 300ML CLEAR YELLOW URINE. PT SR ON TELEMETRY. HR 83. AFEBRILE, PT DENIES CP, SOB OR DISTRESS AT THIS TIME. RESPIRATIONS EVEN/UNLABORED, LS CLEAR ANTERIORLY, WHEZING POSTERIORLY, SA02@98%. ABDOMEN DISTENDED, NON-TENDER. LBM 7-11-20. PT ORIENTED TO UNIT, ROOM, CALL LIGHT. BSC IN PLACE. CALL LIGHT IN REACH. WILL MONITOR.
--- NOTE | 2020-03-17 19:20 | NUR ---
RECEIVED REPORT. PT BEDRESTING. ON AIRBORNE PRECAUTIONS.
[2020-03-17 20:00] VITALS: BP 116/60
--- NOTE | 2020-03-17 20:05 | NUR ---
PT CALLED DIRECTOR [facility] LIGHT ASKINGING FOR SOMETHING TO DRINK. HS MEDS AND DRINK TAKEN IN TO PATIENT. HE SAID HE NEEDS ASSISTANCE TO BSC TO URINATE. WHILE ASSISTING HIM, HE LIFTED THE LID AND SAID IT STINKS AND HE IS NOT GOING TO STAY IN A STINKING ROOM. HE WOULD RATHER BE AT HOME WHERE HE CAN REST BETTER. I EXPLAINED. HE VOIDED, AFTER, BSC EMPTIED. I ASSURED HIM THAT I JUST ARRIVED AND HAVE HIS BEDTIME MEDICATION INCLUDING HIS XANAX WHICH SHOULD MAKE HIM FEEL A LOT BETTER. JE WANTED TO KNOW WHERE HIS PHENOBARBITAL IS AND IF SOMEBODY FABIAN NOT COME UP WITH IT, THEY WILL NOT HAVE A JOB. I EXPLAINED I CAN ONLY GIVE WHAT IS ORDERED. I RECHECKED HIS MAR, AND PHENOBARBITAL IS NOT ORDERED. HE DID NOT WANT ME WEARING A GOWN HE SAID THAT HE HAS CANCER WHICH IS NOT CATCHY AND I CANNOT GET ANYTHING FROM HIM. I EXPLAINED THAT WE DO THIS FOR ALL PATIENTS WITH HIS DIAGNOSIS. HE SAID JUST TO GIVE HIM HIS CLOTHES, CALL A TAXI AND HE WILL GO HOME. I ENCOURAGED HIM TO STAY FOR IV ANTIBIOTICS AND STEROIDS. DR CROWLEY NOTIFIED.
--- NOTE | 2020-03-17 20:30 | NUR ---
WHILE I WAS IN PATIENT'S ROOM, HIS SON CALLED. I RETURNED HIS CALL AND UPDATED HIS INFORMATION- THAT PATIENT WANTS TO SIGN OUT AGAINST MEDICAL ADVISE. THE SON SAID THAT HE WILL COME GET HIM. AGAIN, I SPOKE WITH PATIENT TO ASK HIM TO RECONSIDER. THE DOCTOR FEELS HE NEEDS THE IV MEDICATION HE WAS HERE YESTERDAY AND AGAIN TODAY. THE PATIENT SAID HE HAS HIS CLOTHES ON AND IS READY TO GO... JUST TAKE THE IV OUT. HE SAID I HAD BEEN NICE TO HIM BUT HE CANNOT BEAR TO STAY ANY LONGER. I VERIFIED THAT HE USES [id number] HIS PHARMACYAS DR CROWLEY SAID THAT HE WILL SEND PRESCRIPTIONS THERE FOR HIM TO TAKE. PT AGREED TO GET MEDICATIONS IN THE MORNING AND TAKE ORDERED
--- NOTE | 2020-03-17 20:37 | NUR ---
PATIENT'S SON HERE. PATIENT SIGNED OUT AMA, DISPITE REPEATED ENCOURAGEMENT TO STAY FOR FURTHER TREATMENT. MD TO ORDER MEDICATIONSAT [facility] ([facility] FOR HOME USE. PT AND SON INFORMED OF HS MEDICATIONS JUST GIVEN TO NOT TAKE ANOTHER DOSE OF THESE TONIGHT. AND, TO OBTAIN ORDERED MEDICATION AT [facility] TO TAKE ORDERED WE DONT WANT HIM TO GET WORSE. PATIENT THANKED ME FOR MY CARE. D/C TO HOME (AMA) WITH FAMILY VIA W/C. TALKING NONSTOP ALL THE WAY OUT. ALSO, PATIENT DID NOT HAVE T-SHIRT. HAD SHOES AND SHORTS BUT COULD NOT FIND HIS SHIRT. HE WORE SHOES, SOCKS, SHORTS AND A GOWN HOME
[2020-03-17] MEDS ORDERED: MEDDOSEPAK PO ×2 (21:07)
[2020-03-17] MEDS ORDERED: ZITHROMAX250 MG PO (21:09)
== END 2020-03-17 20:37 | disposition left against medical advice (07) | DRG 195 ==
LOC: ED 11:13 → ED-I 14:37 → ED 14:46 → ED-I 14:47 → ICU 17:00
PROVIDERS: Student in an Organized Health Care Education/Training Program; ADMIT Internal Medicine; ATTEND Internal Medicine
DX: J18.9 Pneumonia, unspecified organism (principal); R11.2 Nausea with vomiting, unspecified; R42 Dizziness and giddiness; J43.9 Emphysema, unspecified; I10 Essential (primary) hypertension; I48.91 Unspecified atrial fibrillation; I25.10 Atherosclerotic heart disease of native coronary artery without angina pectoris; G40.909 Epilepsy, unspecified, not intractable, without status epilepticus; G20 Parkinson's disease; G62.9 Polyneuropathy, unspecified; I25.2 Old myocardial infarction; E78.5 Hyperlipidemia, unspecified; F17.200 Nicotine dependence, unspecified, uncomplicated; Z95.5 Presence of coronary angioplasty implant and graft; Z86.73 Personal history of transient ischemic attack (TIA), and cerebral infarction without residual deficits; Z85.819 Personal history of malignant neoplasm of unspecified site of lip, oral cavity, and pharynx; Z20.828 Contact with and (suspected) exposure to other viral communicable diseases; I95.9 Hypotension, unspecified; S50.02XA Contusion of left elbow, initial encounter; F17.210 Nicotine dependence, cigarettes, uncomplicated; W19.XXXA Unspecified fall, initial encounter
CPT/HCPCS: J1650; Q9967

== ENCOUNTER 2020-05-31 01:40 | Emergency (ER) | payer MEDICARE, OTHER ==
[~2020-05-31] VITALS: Ht 170.2 cm; Wt 82.0 kg
[~2020-05-31 01:40] MED LIST changes: +CLARITIN10 M1 PO; +CLOPIDOGREL75 MG PO; +FINASTERIDE5 MG PO; +LEVOFLOXACIN750 MG PO; +METOPROL TAR25 M1 PO; +NITROGLYCE0.4 MG/SPR; +PHENOBARBITAL30 MG PO; +VENTOLIN H108 MCG/AC
[2020-05-31] MEDS ORDERED: XANAX1 MG PO (02:23)
[2020-05-31 03:17] VITALS: BP 133/55
== END 2020-05-31 03:17 | disposition home or self-care (01) ==
LOC: ED 01:40
DX: F41.1 Generalized anxiety disorder (principal); I10 Essential (primary) hypertension; G40.909 Epilepsy, unspecified, not intractable, without status epilepticus; G20 Parkinson's disease; I25.10 Atherosclerotic heart disease of native coronary artery without angina pectoris; J43.9 Emphysema, unspecified; I48.91 Unspecified atrial fibrillation; G62.9 Polyneuropathy, unspecified; F17.210 Nicotine dependence, cigarettes, uncomplicated; I25.2 Old myocardial infarction; Z95.5 Presence of coronary angioplasty implant and graft; Z86.73 Personal history of transient ischemic attack (TIA), and cerebral infarction without residual deficits

== ENCOUNTER 2020-06-14 22:19 | Emergency (ER) | payer MEDICARE, OTHER ==
[~2020-06-14] VITALS: Ht 170.2 cm; Wt 64.0 kg
[~2020-06-14 22:19] MED LIST changes: +XANAX1 MG PO
[2020-06-14 22:48] LABS: HEMATOCRIT 32.5 % (39.0-50.0); HEMOGLOBIN 10.4 g/dl (14.0-18.0); IMMATURE GRANULOCYTES 0.3 % (0.0-5.0); MEAN CELL VOLUME 83.1 fL CALC (80.0-100.0); MEAN CORPUSCULAR HGB 26.6 pG CALC (26.0-32.0); NEUT# 7.07 thou/uL (1.82-7.42); RED BLOOD COUNT 3.91 mill/uL (4.70-6.10); RED CELL DISTRI WIDTH 16.9 % (11.5-15.5)
[2020-06-14] MEDS ORDERED: DILANTIN100 MG PO (23:02)
[2020-06-14] MEDS ORDERED: PLAVIX75 MG PO (23:02)
[2020-06-14] MEDS ORDERED: CODEINE/APAP1 TAB PO (23:04)
[2020-06-14 23:08] LABS: ALKALINE PHOSPHATASE 142 u/l (38-126); BILIRUBIN, TOTAL 0.3 mg/dL (0.0-1.4); BUN 8 mg/dL (8-23); BUN/CREATININE RATIO 11 (12-20 (CALC)); CHLORIDE 93 mmol/l (95-108); CREATININE 0.8 mg/dL (0.7-1.3); GFR > 60 ML/MIN (>=60 (CALC)); GFR FOR AFR.AMER. > 60 ML/MIN (>=60 (CALC)); SGOT/AST 21 u/l (19-48); SODIUM 133 mmol/l (137-146); TOTAL PROTEIN 7.3 g/dL (6.3-8.2)
[2020-06-14 23:14] LABS: ACT PARTIAL THROMBO TIME 24.3 SECONDS (20.0-32.5); INTERNATIONAL NORMALIZED RATIO 1.1 RATIO (0.7-1.3); PROTHROMBIN TIME 11.3 SECONDS (9.0-12.5)
[2020-06-14 23:16] LABS: ANION GAP 13 (6-22 (CALC)); CARBON DIOXIDE 30 mmol/l (22-30); POTASSIUM 2.8 mmol/l (3.5-5.1)
[2020-06-14 23:19] LABS: MYOGLOBIN 79 ng/mL (0 - 121)
[2020-06-14 23:25] LABS: D-DIMER 1.04 mg/L (0.19-0.60); PHENYTOIN (DILANTIN) < 3 ug/mL (10 - 20)
[2020-06-14 23:27] LABS: MAGNESIUM 1.5 mg/dL (1.6-2.3)
[2020-06-15 00:20] VITALS: BP 110/64
[2020-06-15] MEDS ORDERED: MAG OXIDE400 MG PO (00:46)
[2020-06-15] MEDS ORDERED: K-DUR/KLOR-CON20 MEQ PO (00:46)
== END 2020-06-15 01:05 | disposition left against medical advice (07) ==
LOC: ED 22:19
PROVIDERS: Family Medicine
DX: R07.9 Chest pain, unspecified (principal); I10 Essential (primary) hypertension; I25.10 Atherosclerotic heart disease of native coronary artery without angina pectoris; I48.91 Unspecified atrial fibrillation; J43.9 Emphysema, unspecified; G20 Parkinson's disease; G40.909 Epilepsy, unspecified, not intractable, without status epilepticus; G62.9 Polyneuropathy, unspecified; E78.5 Hyperlipidemia, unspecified; F17.200 Nicotine dependence, unspecified, uncomplicated; I25.2 Old myocardial infarction; Z95.5 Presence of coronary angioplasty implant and graft; Z86.73 Personal history of transient ischemic attack (TIA), and cerebral infarction without residual deficits; Z91.19 Patient's noncompliance with other medical treatment and regimen
CPT/HCPCS: Q9967

== ENCOUNTER 2020-06-26 21:04 | Emergency (ER) | payer MEDICARE, OTHER ==
[~2020-06-26] VITALS: Ht 170.2 cm; Wt 63.0 kg
[~2020-06-26 21:04] MED LIST changes: +CODEINE/APAP1 TAB PO; +MAG OXIDE400 MG PO
[2020-06-26] MEDS ORDERED: XANAX XR1 MG PO (21:33)
[2020-06-26 22:58] VITALS: BP 145/71
== END 2020-06-26 22:55 | disposition home or self-care (01) ==
LOC: ED 21:04
DX: F41.1 Generalized anxiety disorder (principal); I10 Essential (primary) hypertension; G40.909 Epilepsy, unspecified, not intractable, without status epilepticus; G20 Parkinson's disease; I25.10 Atherosclerotic heart disease of native coronary artery without angina pectoris; J43.9 Emphysema, unspecified; I25.2 Old myocardial infarction; I48.91 Unspecified atrial fibrillation; G62.9 Polyneuropathy, unspecified; E78.5 Hyperlipidemia, unspecified; F17.200 Nicotine dependence, unspecified, uncomplicated; T42.4X6A Underdosing of benzodiazepines, initial encounter; Z91.138 Patient's unintentional underdosing of medication regimen for other reason; Z95.5 Presence of coronary angioplasty implant and graft; Z86.73 Personal history of transient ischemic attack (TIA), and cerebral infarction without residual deficits

== ENCOUNTER 2020-06-28 21:55 | Emergency (ER) | payer MEDICARE, OTHER ==
[~2020-06-28] VITALS: Ht 170.2 cm; Wt 63.0 kg
[~2020-06-28 21:55] MED LIST changes: +XANAX XR1 MG PO
[2020-06-28 22:13] VITALS: BP 141/79
[2020-06-28 22:48] LABS: HEMATOCRIT 31.4 % (39.0-50.0); IMMATURE GRANULOCYTES 0.2 % (0.0-5.0); MEAN CELL VOLUME 82.8 fL CALC (80.0-100.0); MEAN CORPUSCULAR HGB 26.4 pG CALC (26.0-32.0); MEAN CORPUSCULAR HGB CONC 31.8 g/dL CAL (32.0-36.0); NEUT# 6.18 thou/uL (1.82-7.42); RED BLOOD COUNT 3.79 mill/uL (4.70-6.10); RED CELL DISTRI WIDTH 16.7 % (11.5-15.5)
[2020-06-28 23:19] LABS: ALBUMIN 4.3 g/dL (3.2-5.0); ALKALINE PHOSPHATASE 166 u/l (38-126); ANION GAP 15 (6-22 (CALC)); BILIRUBIN, TOTAL 0.3 mg/dL (0.0-1.4); BUN 6 mg/dL (8-23); BUN/CREATININE RATIO 9 (12-20 (CALC)); CARBON DIOXIDE 27 mmol/l (22-30); CHLORIDE 94 mmol/l (95-108); CREATININE 0.7 mg/dL (0.7-1.3); ETHYL ALCOHOL 0 mg/dl (0-30); GFR > 60 ML/MIN (>=60 (CALC)); GFR FOR AFR.AMER. > 60 ML/MIN (>=60 (CALC)); PHENYTOIN (DILANTIN) < 3 ug/mL (10 - 20); POTASSIUM 3.1 mmol/l (3.5-5.1); SGOT/AST 21 u/l (19-48); SODIUM 133 mmol/l (137-146); TOTAL PROTEIN 7.5 g/dL (6.3-8.2)
[2020-06-28 23:46] LABS: TSH, 3RD GENERATION 0.46 uIU/mL (0.47 - 4.68)
[2020-06-28 23:50] LABS: URINE BILIRUBIN - DIPSTICK NEGATIVE (NEGATIVE); URINE BLOOD DIPSTICK TRACE-INTACT (NEGATIVE); URINE COLOR YELLOW; URINE GLUCOSE - DIPSTICK NEGATIVE (NEGATIVE); URINE KETONE NEGATIVE (NEGATIVE); URINE LEUK ESTERASE NEGATIVE (NEGATIVE); URINE NITRITE - DIPSTICK NEGATIVE (Negative); URINE PROTEIN - DIPSTICK NEGATIVE (NEG-TRACE); URINE SPECIFIC GRAVITY <=1.005; URINE UROBILINOGEN - DIPSTICK 0.2 E.U./dL (0.2)
[2020-06-28] MEDS ORDERED: MECLIZINE25 MG PO (23:55)
[2020-06-29] MEDS ORDERED: FUROSEMIDE20 MG PO (13:08)
[2020-06-29] MEDS ORDERED: HYDROMORPHON4 MG PO (13:09)
== END 2020-06-29 00:05 | disposition home or self-care (01) ==
LOC: ED 21:55
PROVIDERS: Family Medicine
DX: F41.1 Generalized anxiety disorder (principal); G89.29 Other chronic pain; R42 Dizziness and giddiness; I10 Essential (primary) hypertension; G40.909 Epilepsy, unspecified, not intractable, without status epilepticus; G20 Parkinson's disease; I25.10 Atherosclerotic heart disease of native coronary artery without angina pectoris; I25.2 Old myocardial infarction; J43.9 Emphysema, unspecified; I48.91 Unspecified atrial fibrillation; G62.9 Polyneuropathy, unspecified; E78.5 Hyperlipidemia, unspecified; F17.210 Nicotine dependence, cigarettes, uncomplicated; Z86.73 Personal history of transient ischemic attack (TIA), and cerebral infarction without residual deficits; Z95.5 Presence of coronary angioplasty implant and graft

== ENCOUNTER 2020-06-29 12:35 | Emergency (ER) | payer MEDICARE, OTHER ==
[~2020-06-29] VITALS: Ht 170.2 cm; Wt 63.6 kg
[2020-06-29] MEDS ORDERED: FUROSEMIDE20 MG PO (13:08)
[2020-06-29] MEDS ORDERED: HYDROMORPHON4 MG PO (13:09)
[2020-06-29 13:20] VITALS: BP 145/66
== END 2020-06-29 13:20 | disposition home or self-care (01) ==
LOC: ED 12:35
DX: Z76.0 Encounter for issue of repeat prescription (principal); F41.9 Anxiety disorder, unspecified; I10 Essential (primary) hypertension; G40.909 Epilepsy, unspecified, not intractable, without status epilepticus; G20 Parkinson's disease; I25.10 Atherosclerotic heart disease of native coronary artery without angina pectoris; J43.9 Emphysema, unspecified; I48.91 Unspecified atrial fibrillation; G62.9 Polyneuropathy, unspecified; E78.5 Hyperlipidemia, unspecified; I25.2 Old myocardial infarction; F17.200 Nicotine dependence, unspecified, uncomplicated; Z95.5 Presence of coronary angioplasty implant and graft; Z86.73 Personal history of transient ischemic attack (TIA), and cerebral infarction without residual deficits

== ENCOUNTER 2020-08-15 12:26 | Emergency (ER) | payer MEDICARE, OTHER ==
[~2020-08-15] VITALS: Ht 170.2 cm; Wt 63.0 kg
[2020-08-15 13:41] LABS: HEMATOCRIT 33.8 % (39.0-50.0); HEMOGLOBIN 10.7 g/dl (14.0-18.0); IMMATURE GRANULOCYTES 0.4 % (0.0-5.0); MEAN CELL VOLUME 80.7 fL CALC (80.0-100.0); MEAN CORPUSCULAR HGB 25.5 pG CALC (26.0-32.0); MEAN CORPUSCULAR HGB CONC 31.7 g/dL CAL (32.0-36.0); NEUT# 4.87 thou/uL (1.82-7.42); RED BLOOD COUNT 4.19 mill/uL (4.70-6.10); RED CELL DISTRI WIDTH 16.4 % (11.5-15.5)
[2020-08-15 13:50] LABS: PROTHROMBIN TIME 10.4 SECONDS (9.0-12.5)
[2020-08-15 13:56] LABS: ALBUMIN 3.9 g/dL (3.2-5.0); ALKALINE PHOSPHATASE 150 u/l (38-126); BUN 4 mg/dL (8-23); BUN/CREATININE RATIO 8 (12-20 (CALC)); CARBON DIOXIDE 30 mmol/l (22-30); CHLORIDE 89 mmol/l (95-108); CREATININE 0.6 mg/dL (0.7-1.3); ETHYL ALCOHOL 0 mg/dl (0-30); GFR > 60 ML/MIN (>=60 (CALC)); GFR FOR AFR.AMER. > 60 ML/MIN (>=60 (CALC)); SGOT/AST 21 u/l (19-48); SODIUM 127 mmol/l (137-146); TOTAL PROTEIN 7.3 g/dL (6.3-8.2)
[2020-08-15 13:58] LABS: ANION GAP 11 (6-22 (CALC)); BILIRUBIN, TOTAL 0.4 mg/dL (0.0-1.4); POTASSIUM 2.9 mmol/l (3.5-5.1)
[2020-08-15 14:26] VITALS: BP 136/83
== END 2020-08-15 14:38 | disposition home or self-care (01) ==
LOC: ED 12:26
PROVIDERS: Student in an Organized Health Care Education/Training Program
DX: E87.1 Hypo-osmolality and hyponatremia (principal); E87.6 Hypokalemia; I10 Essential (primary) hypertension; G20 Parkinson's disease; I25.10 Atherosclerotic heart disease of native coronary artery without angina pectoris; J43.9 Emphysema, unspecified; I48.91 Unspecified atrial fibrillation; G40.909 Epilepsy, unspecified, not intractable, without status epilepticus; G62.9 Polyneuropathy, unspecified; E78.5 Hyperlipidemia, unspecified; I25.2 Old myocardial infarction; F17.210 Nicotine dependence, cigarettes, uncomplicated; Z86.73 Personal history of transient ischemic attack (TIA), and cerebral infarction without residual deficits; Z95.5 Presence of coronary angioplasty implant and graft

== ENCOUNTER 2020-08-20 00:53 | Emergency (ER) | payer MEDICARE, OTHER ==
[~2020-08-20] VITALS: Ht 170.2 cm; Wt 63.0 kg
[2020-08-20 01:44] LABS: HEMATOCRIT 30.2 % (39.0-50.0); HEMOGLOBIN 9.7 g/dl (14.0-18.0); IMMATURE GRANULOCYTES 0.3 % (0.0-5.0); MEAN CELL VOLUME 82.1 fL CALC (80.0-100.0); MEAN CORPUSCULAR HGB 26.4 pG CALC (26.0-32.0); MEAN CORPUSCULAR HGB CONC 32.1 g/dL CAL (32.0-36.0); NEUT# 6.4 thou/uL (1.82-7.42); RED BLOOD COUNT 3.68 mill/uL (4.70-6.10); RED CELL DISTRI WIDTH 17.1 % (11.5-15.5)
[2020-08-20 02:02] LABS: ALBUMIN 3.7 g/dL (3.2-5.0); ALKALINE PHOSPHATASE 139 u/l (38-126); ANION GAP 9 (6-22 (CALC)); BILIRUBIN, TOTAL 0.2 mg/dL (0.0-1.4); BUN 7 mg/dL (8-23); BUN/CREATININE RATIO 10 (12-20 (CALC)); CARBON DIOXIDE 29 mmol/l (22-30); CHLORIDE 94 mmol/l (95-108); CREATININE 0.7 mg/dL (0.7-1.3); GFR > 60 ML/MIN (>=60 (CALC)); GFR FOR AFR.AMER. > 60 ML/MIN (>=60 (CALC)); LIPASE 81 u/l (23-300); POTASSIUM 3.4 mmol/l (3.5-5.1); SGOT/AST 19 u/l (19-48); SODIUM 128 mmol/l (137-146); TOTAL PROTEIN 6.7 g/dL (6.3-8.2)
[2020-08-20 02:08] LABS: ACT PARTIAL THROMBO TIME 24.9 SECONDS (20.0-32.5); PROTHROMBIN TIME 10.4 SECONDS (9.0-12.5)
[2020-08-20] MEDS ORDERED: AMOX/K CLAV875 M1 PO (02:35)
[2020-08-20] MEDS ORDERED: MEDDOSEPAK PO (02:35)
[2020-08-20] MEDS ORDERED: CODEINE/GUAIFEN1 SOL PO (02:35)
[2020-08-20 04:26] VITALS: BP 120/61
== END 2020-08-20 07:10 | disposition home or self-care (01) ==
LOC: ED 00:53
DX: R07.9 Chest pain, unspecified (principal); J18.9 Pneumonia, unspecified organism; J43.9 Emphysema, unspecified; I25.10 Atherosclerotic heart disease of native coronary artery without angina pectoris; I10 Essential (primary) hypertension; G40.909 Epilepsy, unspecified, not intractable, without status epilepticus; G20 Parkinson's disease; I48.91 Unspecified atrial fibrillation; G62.9 Polyneuropathy, unspecified; E78.5 Hyperlipidemia, unspecified; F17.200 Nicotine dependence, unspecified, uncomplicated; I25.2 Old myocardial infarction; Z86.73 Personal history of transient ischemic attack (TIA), and cerebral infarction without residual deficits; Z95.5 Presence of coronary angioplasty implant and graft; Z20.828 Contact with and (suspected) exposure to other viral communicable diseases

== ENCOUNTER 2020-08-24 13:09 | Observation (INO) | payer MEDICARE, OTHER ==
[~2020-08-24] VITALS: Ht 170.2 cm; Wt 70.5 kg
[~2020-08-24 13:09] MED LIST changes: +AMOX/K CLAV875 M1 PO; +CODEINE/GUAIFEN1 SOL PO
--- NOTE | 2020-08-24 13:12 | NUR ---
PATIENT TO ROOM VIA [facility]
--- NOTE | 2020-08-24 13:20 | NUR ---
INTRODUCED SELF TO PT, REPORTS CHEST PAIN X 2 WEEKS ONGOING, WAS SEEN AT [facility] ED RECENTLY AND LEFT AMA. STATES PAIN IS IN LEFT SIDE OF CHEST RATES PAIN 8/10. DENIES N/V/D, FEVER. IV INITIATED WITH BLOOD SPECIMENS OBTAINED. TOLERATE WELL
[2020-08-24 13:59] LABS: HEMATOCRIT 32.9 % (39.0-50.0); HEMOGLOBIN 10.2 g/dl (14.0-18.0); IMMATURE GRANULOCYTES 0.3 % (0.0-5.0); MEAN CELL VOLUME 83.3 fL CALC (80.0-100.0); MEAN CORPUSCULAR HGB 25.8 pG CALC (26.0-32.0); RED BLOOD COUNT 3.95 mill/uL (4.70-6.10); RED CELL DISTRI WIDTH 17.4 % (11.5-15.5)
[2020-08-24 14:19] LABS: ALBUMIN 4.2 g/dL (3.2-5.0); ALKALINE PHOSPHATASE 178 u/l (38-126); BUN 13 mg/dL (8-23); BUN/CREATININE RATIO 19 (12-20 (CALC)); CARBON DIOXIDE 28 mmol/l (22-30); CHLORIDE 97 mmol/l (95-108); CREATININE 0.7 mg/dL (0.7-1.3); GFR > 60 ML/MIN (>=60 (CALC)); GFR FOR AFR.AMER. > 60 ML/MIN (>=60 (CALC)); LIPASE 23 u/l (23-300); SGOT/AST 27 u/l (19-48); SODIUM 134 mmol/l (137-146); TOTAL PROTEIN 7.8 g/dL (6.3-8.2)
[2020-08-24 14:20] LABS: ANION GAP 13 (6-22 (CALC)); BILIRUBIN, TOTAL 0.6 mg/dL (0.0-1.4); POTASSIUM 4.1 mmol/l (3.5-5.1)
--- NOTE | 2020-08-24 14:30 | NUR ---
PT RESTING ON STRETCHER, PLAN OF CARE ADVISED ALONG WITH WAIT TIME. PT NOTIFIED OF ANTIBIOTICS AND FLUIDS THAT WILL BE INITIATED SOON CALL LIGHT WITHIN REACH RECIVED A SOFT DRINK
--- NOTE | 2020-08-24 15:01 | NUR ---
PT RESTING WITH ANTIBIOTIC AND FLUIDS FLOWING INTO PATENT IV WITH NO COMPLICATIONS OR ADVERSE REACTIONS
--- NOTE | 2020-08-24 15:26 | NUR ---
PATIENT RESTING IN STRETCHER IN NAD AND DENIES ANY NEEDS. HE IS UNABLE TO PROVIDE URINE SAMPLE AT THIS TIME. AWARE.
--- NOTE | 2020-08-24 16:00 | NUR ---
PT REQUESTING TO BE REPOSITIONED AND SIT IN BEDSIDE CHAIR. PT TRANSFERED OVER TO CHAIR EASILY. MONITOR IN PLACE. CALL LIGTH GIVEN. INSTRUCTED PT TO REMAIN IN CHAIR AND TO NOTIFY STAFF IF WISHING TO BE PLACED BACK INTO BED--VERBALIZED UNDERSTANDING.
--- NOTE | 2020-08-24 17:00 | NUR ---
PT SITTING IN BEDSIDE CHAIR IN NAD. RESP EVEN AND UNLABORED. SKIN WARM AND DRY. PT ADVISED OF CONT WAIT TIME. VERBALIZED UNDERSTANDING. DENIES ANY NEEDS. CALL LIGHT WITHIN REACH.
[2020-08-24 17:23] VITALS: BP 181/77
--- NOTE | 2020-08-24 17:30 | NUR ---
PT STATES " HONEY I WANT TO LEAVE FROM HERE, I DO NOT WANT TO STAY, I WANT TO GO HOME. " PT STATES HE HAS DOMESTIC ISSUES AT HOME TO "DEAL WITH" ENCOURAGED PT TO REMAIN AT HOSPITAL AND TO BE EVALUATED FOR COMPLAINT. PT ADAMANT ABOUT LEAVING AND REQUESTING FOR EVERYTHING TO BE REMOVED. CHARGE NURSE KG SANDERS MADE AWARE OF PT STATUS AND DECISION TO LEAVE. Patient decides to leave AMA. Multiple attempts made to ecourage patient to remain here for continued treatment. Explained to patient all risks of leaving against medical advice including . Pt verbalized understanding of all risks. Pt also encouraged to return to [facility] at any time, especially if symptoms continue or become worse. Pt verbalized understanding.
== END 2020-08-24 17:45 | disposition left against medical advice (07) ==
LOC: ED 13:09 → ED-I 14:30 → ED 15:45 → MS2 15:46
PROVIDERS: ADMIT Internal Medicine; ATTEND Internal Medicine
DX: R07.9 Chest pain, unspecified (principal); J18.9 Pneumonia, unspecified organism; J43.9 Emphysema, unspecified; I10 Essential (primary) hypertension; I25.10 Atherosclerotic heart disease of native coronary artery without angina pectoris; G40.909 Epilepsy, unspecified, not intractable, without status epilepticus; G20 Parkinson's disease; G89.29 Other chronic pain; I48.91 Unspecified atrial fibrillation; G62.9 Polyneuropathy, unspecified; E78.5 Hyperlipidemia, unspecified; F17.210 Nicotine dependence, cigarettes, uncomplicated; I25.2 Old myocardial infarction; Z95.5 Presence of coronary angioplasty implant and graft; Z85.819 Personal history of malignant neoplasm of unspecified site of lip, oral cavity, and pharynx; Z86.73 Personal history of transient ischemic attack (TIA), and cerebral infarction without residual deficits; Z20.828 Contact with and (suspected) exposure to other viral communicable diseases

== ENCOUNTER 2020-09-16 18:27 | Emergency (ER) | payer MEDICARE, OTHER ==
[~2020-09-16] VITALS: Ht 170.2 cm; Wt 63.6 kg
[2020-09-16 20:26] LABS: HEMATOCRIT 32.4 % (39.0-50.0); IMMATURE GRANULOCYTES 0.3 % (0.0-5.0); MEAN CELL VOLUME 83.9 fL CALC (80.0-100.0); MEAN CORPUSCULAR HGB 25.9 pG CALC (26.0-32.0); MEAN CORPUSCULAR HGB CONC 30.9 g/dL CAL (32.0-36.0); NEUT# 6.17 thou/uL (1.82-7.42); RED BLOOD COUNT 3.86 mill/uL (4.70-6.10); RED CELL DISTRI WIDTH 18.1 % (11.5-15.5)
[2020-09-16 20:44] LABS: ALKALINE PHOSPHATASE 143 u/l (38-126); ANION GAP 14 (6-22 (CALC)); BUN 10 mg/dL (8-23); BUN/CREATININE RATIO 14 (12-20 (CALC)); CARBON DIOXIDE 25 mmol/l (22-30); CHLORIDE 95 mmol/l (95-108); CREATININE 0.7 mg/dL (0.7-1.3); GFR > 60 ML/MIN (>=60 (CALC)); GFR FOR AFR.AMER. > 60 ML/MIN (>=60 (CALC)); POTASSIUM 4.6 mmol/l (3.5-5.1); SGOT/AST 16 u/l (19-48); SODIUM 129 mmol/l (137-146); TOTAL PROTEIN 7.1 g/dL (6.3-8.2)
[2020-09-16 20:46] LABS: BILIRUBIN, TOTAL 0.1 mg/dL (0.0-1.4)
[2020-09-16 21:00] VITALS: BP 146/71
[2020-09-17] MEDS ORDERED: ZPAK PO (05:51)
== END 2020-09-16 21:15 | disposition left against medical advice (07) ==
LOC: ED 18:27
PROVIDERS: Emergency Medicine
DX: J06.9 Acute upper respiratory infection, unspecified (principal); I10 Essential (primary) hypertension; G62.9 Polyneuropathy, unspecified; G40.909 Epilepsy, unspecified, not intractable, without status epilepticus; G20 Parkinson's disease; I25.10 Atherosclerotic heart disease of native coronary artery without angina pectoris; J43.9 Emphysema, unspecified; I48.91 Unspecified atrial fibrillation; E78.5 Hyperlipidemia, unspecified; F17.210 Nicotine dependence, cigarettes, uncomplicated; I25.2 Old myocardial infarction; Z86.73 Personal history of transient ischemic attack (TIA), and cerebral infarction without residual deficits; Z85.819 Personal history of malignant neoplasm of unspecified site of lip, oral cavity, and pharynx; Z95.5 Presence of coronary angioplasty implant and graft; Z20.822 Contact with and (suspected) exposure to COVID-19; Z91.19 Patient's noncompliance with other medical treatment and regimen